=== PATIENT | male | born 1955 | race Caucasian/White ===

== ENCOUNTER → 2018-03-14 | Outpatient (CLI) | payer OTHER ==
[~2018-03-14] MED LIST: ACTOS15 MG PO; ASPIR 8181 MG PO; AUGMENTIN 875875 MG; BACTRIM 400-801 EACH PO; BACTRIM PO; CARAFATE 1 GM TA1 GM PO; FISH OIL SOFTG1 EACH PO; FISHOIL; FLEXERIL PO; FLU VACCINE; GLUCOPHAGE500 MG PO; HYDROCODON-ACE1 EAC5 PO; INSULIN SQ; LANTUS SUBQ; LASIX 20 MG TAB20 MG; LASIX 20 MG TAB20 MG PO; LASIX 40 MG TAB40 M2; LASIX 80 MG TAB80 M1 PO; LEVEMIR SUBQ; LIDODERM 5%1 PATCH TOP; LIPITOR 20 MG T20 M1 PO; LIPITOR20 MG PO; LISINOPRIL20 MG PO; LISINOPRIL30 MG PO; LOPID600 MG; LOPRESSOR25 PO; LORTAB 5 MG/5001 TA1; LOVASTAT40; LOVAZA1000 MG PO; METAMUCIL PAC1 UDPK1; METHADONE HCL5 MG PO; NAPROSYN500 MG PO; NEURONTIN600 MG PO; NORCO 10-325 T1 EACH PO; NOVOLOG100 UNIT/1 SQ; NOVOLOG100 UNIT/1 SUBQ; OMEPRAZOLE40 MG PO; OXYCODONE HCL15 MG PO; OXYCONTIN20 M1 PO; PNEUMOVAX25 MCG/0.5; POTASSIUM PO; PREDNISONE 20 M20 MG PO; PROAIR HFA8.5 GM INH; RELAFEN500 MG; ROZEREM; SIMVASTATIN40 MG PO; TRADJENTA5 MG PO; VICTOZA0.6 MG/0.1 SUBQ; ZANTAC 150MG T150 M1 PO; ZETIA10 MG PO; ZOFRAN ODT4 MG PO
== END ==
LOC: M.WC 12:44
DX: E11.622 Type 2 diabetes mellitus with other skin ulcer (principal); L97.811 Non-pressure chronic ulcer of other part of right lower leg limited to breakdown of skin; E11.621 Type 2 diabetes mellitus with foot ulcer; L97.511 Non-pressure chronic ulcer of other part of right foot limited to breakdown of skin; E11.40 Type 2 diabetes mellitus with diabetic neuropathy, unspecified; I87.2 Venous insufficiency (chronic) (peripheral); I10 Essential (primary) hypertension; E66.01 Morbid (severe) obesity due to excess calories; E78.5 Hyperlipidemia, unspecified; Z68.41 Body mass index [BMI] 40.0-44.9, adult; Z87.891 Personal history of nicotine dependence

== ENCOUNTER → 2018-03-21 | Outpatient (CLI) | payer OTHER | LOC: M.WC 03:00 | DX: E11.622 Type 2 diabetes mellitus with other skin ulcer (principal); L97.811 Non-pressure chronic ulcer of other part of right lower leg limited to breakdown of skin; E11.621 Type 2 diabetes mellitus with foot ulcer; L97.511 Non-pressure chronic ulcer of other part of right foot limited to breakdown of skin; I87.2 Venous insufficiency (chronic) (peripheral); E11.40 Type 2 diabetes mellitus with diabetic neuropathy, unspecified; I10 Essential (primary) hypertension; E78.5 Hyperlipidemia, unspecified; E66.01 Morbid (severe) obesity due to excess calories; Z87.891 Personal history of nicotine dependence; Z68.41 Body mass index [BMI] 40.0-44.9, adult ==

== ENCOUNTER → 2018-03-28 | Outpatient (CLI) | payer OTHER | LOC: M.WC 04:09 | DX: E11.621 Type 2 diabetes mellitus with foot ulcer (principal); L97.511 Non-pressure chronic ulcer of other part of right foot limited to breakdown of skin; E11.622 Type 2 diabetes mellitus with other skin ulcer; L97.811 Non-pressure chronic ulcer of other part of right lower leg limited to breakdown of skin; E11.40 Type 2 diabetes mellitus with diabetic neuropathy, unspecified; L84 Corns and callosities; I10 Essential (primary) hypertension; I87.2 Venous insufficiency (chronic) (peripheral); E78.5 Hyperlipidemia, unspecified; Z87.891 Personal history of nicotine dependence ==

== ENCOUNTER 2018-04-21 02:17 | Inpatient (IN) | payer OTHER ==
[2018-04-21] VITALS (12 sets, daily range): BP systolic 92–155; BP diastolic 34–67
[~2018-04-21] VITALS: Ht 182.9 cm; Wt 139.7 kg
[~2018-04-21 02:17] MED LIST changes: -ASPIR 8181 MG PO; -LIPITOR 20 MG T20 M1 PO; -LISINOPRIL20 MG PO; -LOVAZA1000 MG PO; -PREDNISONE 20 M20 MG PO
[2018-04-21] MEDS ORDERED: LOVAZA1000 MG PO (02:34)
[2018-04-21] MEDS ORDERED: ASPIR 8181 MG PO (02:34)
[2018-04-21] MEDS ORDERED: LIPITOR 20 MG T20 M1 PO (02:35)
[2018-04-21] MEDS ORDERED: LISINOPRIL20 MG PO (02:35)
[2018-04-21 02:46] LABS: HEMATOCRIT 31.2 % (42.0-52.0); MCH 26.7 pg (26.0-34.0); MCHC 32.1 g/dL (28.0-37.0); MPV 7.1 fl. (7.2-11.1); NUCLEATED RBCS 0 /100WBC; PLATELET COUNT* 406 thou/uL (150-400); RBC 3.76 mil/uL (4.50-6.00); RDW-CV 16.5 % (10.5-14.5); WBC 12.6 thou/uL (4.0-11.0)
[2018-04-21 02:49] LABS: ANION GAP 12 mmol/L (7-16); BUN 26 mg/dL (7-18); CALCIUM 9.7 mg/dL (8.5-10.1); CHLORIDE 103 mmol/L (98-107); CO2 25 mmol/L (21-32); CREATININE 1.3 mg/dL (0.6-1.3); GLUCOSE 145 mg/dL (70-99); POTASSIUM 3.7 mmol/L (3.5-5.1); SODIUM 140 mmol/L (136-145)
[2018-04-21 02:51] LABS: APTT 31.4 Seconds (25.0-31.3); INR 1.1; PROTIME 11.7 Seconds (9.20-11.50)
[2018-04-21 03:00] LABS: ALBUMIN 2.8 g/dL (3.4-5.0); ALKALINE PHOSPHATASE 80 U/L (46-116); NT-PRO BRAIN NAT PEPTIDE 721 pg/mL (<300); SGOT 13 U/L (15-37); SGPT 10 U/L (30-65); TOTAL BILIRUBIN 0.3 mg/dL (<0.1-1.0); TOTAL PROTEIN 8.4 g/dL (6.4-8.2); TROPONIN-I LEVEL <0.06 ng/mL (<0.06); URIC ACID* 12.3 mg/dL (2.6-7.2)
[2018-04-21 03:50] LABS: ABSOLUTE BASOPHILS 0.3 thou/uL (0.0-0.2); ABSOLUTE EOSINOPHILS 0.1 thou/uL (0.0-0.7); ABSOLUTE LYMPHOCYTES 0.9 thou/uL (0.8-5.3); ABSOLUTE MONOCYTES 0.4 thou/uL (0.0-1.2)
[2018-04-21 03:52] LABS: CLUMPED PLTS OCCASIONAL; PLATELET ESTIMATE INCREASED
--- NOTE | 2018-04-21 05:15 | NUR ---
ASSUMED CARE OF PT AT 1900. PT IS ALERT AND ORIENTED. VSS. PERRLA. BLOOD SUGAR IS 154. PT REPORTS ONGOING PAIN IN HIS LEFT ELBOW. PT RECIEVED MORPHINE FOR PAIN. PT IS IN SINUS RYTHM ON THE TELEMETRY. PT IS RESTING COMFORTABLY IN BED. RESPIRATIONS ARE EVEN AND NONLABORED. WILL CONTINUE TO MONITOR PT.
--- NOTE | 2018-04-21 09:00 | NUR ---
PATIENT'S PHARMACY CONTACTED TO CLARIFY INSULIN DOSING. PER [facility] IN [place], PATIENT TAKES 90 UNITS OF TRACIBA AT . DR NIETO NOTIFIED. CALLED AND WILL BRING TRACIBA IN IT IS NON-FORUMULARY. BLOOD SUGARS HAVE BEEN ELEVATED, SLIDING SCALE INSULIN INCREASED TO HIGH DOSE PER PROTOCOL. ALSO ON METFORMIN. PATIENT COMPLAINTS OF PAIN TO LEFT ELBOW. ORTHO CONSULTED TO ASPIRATE FLUID.
--- NOTE | 2018-04-21 10:53 | NUR ---
Nutrition: Received consult related to diabetes. New admit this am. Pt dx with accidental insulin overdose due to giving the wrong insulin. BMI 43.5, extreme class 3 obesity. BG 109-306 on carb controlled diet. REC insulin education/reinforcement by nsg. RD can followup 04/24 to determine diet education needs.
--- NOTE | 2018-04-21 15:15 | NUR ---
PRE-MEDICATED WITH MORPHINE FOR ORTHO PROCEDURE. ORTHO DOCTOR IN ROOM TO ASPIRATE LEFT ELBOW.
--- NOTE | 2018-04-21 16:57 | NUR ---
PATIENT TRANSFERED TO 219 ON TELEMETRY FLOOR AT 1645 WITH GAIL MEZA BY BED. ALL QUESTIONS ANSWERED. CLOTHES AND BRACE SENT WITH PATIENT. ARRIVED TO FLOOR RIGHT AFTER PATIENT LEFT UNIT, DIRECTED TO NEW ROOM.
--- NOTE | 2018-04-21 17:07 | NUR ---
pt to room from ICU. appears alert o x 4, denies chest pain, SOB, stattes has been having l elbow pain, reports adeq pain control . sr on monitor
[2018-04-21 17:22] LABS: BF RBC 15520 /mm3; CLARITY TURBID; COLOR YELLOW; TOTAL CELL COUNT 64540 /mm3; TOTAL VOLUME 5 ml
[2018-04-21 17:23] LABS: SOURCE LT. ELBOW
[2018-04-21 17:26] LABS: BF LYMPHOCYTES 1 %; BF MONOCYTES 1 %; BF POLYS 98 %
[2018-04-21 17:27] LABS: BF OTHER CRYSTALS SEEN
--- NOTE | 2018-04-22 05:06 | NUR ---
PT AAOX4, RESP REG AND UNALBORED SKIN W/D NO ACUTE DISTRESS NOTED. PT C/O ELBOW PAIN, PT STTES PAIN NEVER GOES AWAY. PT HAS BEEN MEDICATED SEVERAL TIMES. PT STATES ONLY RELEIVES PARITALLY. PT SATED HE WAS GOING HOME TODAY. TELEMETRY PACK INTACT WITH ALARMS SET. VSS, NO ACUTE CHANGES DURING SHIFT, WILL CONTINUE TO MONITOR. PT IS NOT WANTING TO HELP WITH CARE, HE REFUSES TO HOLD URINAL TO VOID, HE INSISTS SOMEONE HOLD FOR HIM, HAVE ATTEMPTED TO ENCOURAGE PT TO TRY TO HELP HIMSLEF MORE. VSS AND NO ACUTE CHANGES DURING SHIFT WILL CONTINUE TO MONITOR
[2018-04-22 12:00] VITALS: BP 132/73
[2018-04-22] MEDS ORDERED: PREDNISONE 20 M20 MG PO (12:55)
[2018-04-22 14:24] VITALS: BP 132/73
--- NOTE | 2018-04-22 15:35 | NUR ---
ORDER [id number] TO DISHCARGE PATIENT HOME TO SELF CARE. MED REC, MEDICATION EDUCATION, STROKE EDUCATION, AND NEED FOR FOLLOW UOP APPOINTMENTS COVERED AND STATED UNDERSTOOD BY FRITZ. IV AND TELEMETRY PACK REMOVED ND PATINE TTAKEN VIA WHEELCHAIR TO AWAIATING CAR WITH SPOUSE PRESENT. HOURLY ROUNDING COMPETED FOR PATIENT SAFETY AND PATIENT PARTICIPATED IN COLÓN OF CARE.
--- NOTE | 2018-04-23 08:24 | NUR ---
P.T. ORDERS RECEIVED 04/21/18. P.T. EVAL ATTEMPTED BY OTHER P.T. SAME DATE, BUT PT REFUSED. PT WAS DISCHARGED HOME 04/22/18 PRIOR TO COMPLETION OF P.T. EVAL.
--- NOTE | 2018-04-23 10:25 | EKG ---
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 : 1955 Requested By: Jaycob Silvestre Order Number: [id number] MD: Vipul Denis Measurements Intervals [place] Rate: 80 P: 10 [place]: 172 QRS: 214 QRSD: 95 T: 5 QT: 370 QTc: 427 Interpretive Statements Sinus rhythm Abnormal R-wave progression, late transition Inferior infarct, old Compared to ECG 06/21/2012 13:24:57 Sinus tachycardia no longer present Right ventricular hypertrophy no longer present Myocardial infarct finding still present Electronically Signed On 04-23-2018 10:25:45 CDT by Vipul Denis [email or web address] <ELECTRONICALLY SIGNED> By: Vipul Denis MD, [facility] 04/23/18 1025 0 0 Vipul Denis MD, FAC /EPI
[2018-04-23 12:05] LABS: BODY FLUID PROTEIN 3.9 g/dL (())
[2018-04-23 22:55] LABS: SOURCE L ELBOW
== END 2018-04-22 15:35 | disposition home or self-care (01) | DRG 918 ==
LOC: M.ERS 02:17 → M.TBA-ER 03:07 → M.ICU 03:07 → M.2W 16:57
PROVIDERS: Family Medicine; Orthopaedic Surgery; ADMIT Internal Medicine
PROC: 0R9M3ZZ Drainage of Left Elbow Joint, Percutaneous Approach (ICD-10-PCS; principal; 2018-04-21)
DX: T38.3X1A Poisoning by insulin and oral hypoglycemic [antidiabetic] drugs, accidental (unintentional), initial encounter (principal); M10.022 Idiopathic gout, left elbow; E11.9 Type 2 diabetes mellitus without complications; I25.10 Atherosclerotic heart disease of native coronary artery without angina pectoris; Z79.4 Long term (current) use of insulin; Z79.82 Long term (current) use of aspirin; Z79.899 Other long term (current) drug therapy; Z88.8 Allergy status to other drugs, medicaments and biological substances; Y92.89 Other specified places as the place of occurrence of the external cause

== ENCOUNTER → 2018-05-16 | Outpatient (CLI) | payer OTHER ==
[~2018-05-16] MED LIST changes: +ASPIR 8181 MG PO; +LIPITOR 20 MG T20 M1 PO; +LISINOPRIL20 MG PO; +LOVAZA1000 MG PO; +PREDNISONE 20 M20 MG PO
== END ==
LOC: M.WC 04:30
DX: E11.621 Type 2 diabetes mellitus with foot ulcer (principal); L97.511 Non-pressure chronic ulcer of other part of right foot limited to breakdown of skin; E11.622 Type 2 diabetes mellitus with other skin ulcer; L97.821 Non-pressure chronic ulcer of other part of left lower leg limited to breakdown of skin; L84 Corns and callosities; I87.2 Venous insufficiency (chronic) (peripheral); E11.40 Type 2 diabetes mellitus with diabetic neuropathy, unspecified; E78.5 Hyperlipidemia, unspecified; E66.01 Morbid (severe) obesity due to excess calories; I10 Essential (primary) hypertension; K21.9 Gastro-esophageal reflux disease without esophagitis; Z87.891 Personal history of nicotine dependence; Z68.41 Body mass index [BMI] 40.0-44.9, adult

== ENCOUNTER → 2018-05-23 | Outpatient (CLI) | payer OTHER | LOC: M.WC 03:59 | DX: E11.621 Type 2 diabetes mellitus with foot ulcer (principal); L97.511 Non-pressure chronic ulcer of other part of right foot limited to breakdown of skin; E11.622 Type 2 diabetes mellitus with other skin ulcer; L97.821 Non-pressure chronic ulcer of other part of left lower leg limited to breakdown of skin; L84 Corns and callosities; E11.40 Type 2 diabetes mellitus with diabetic neuropathy, unspecified; E66.01 Morbid (severe) obesity due to excess calories; E78.5 Hyperlipidemia, unspecified; I10 Essential (primary) hypertension; I87.2 Venous insufficiency (chronic) (peripheral); K21.9 Gastro-esophageal reflux disease without esophagitis; Z87.891 Personal history of nicotine dependence; Z68.41 Body mass index [BMI] 40.0-44.9, adult ==

== ENCOUNTER → 2018-05-30 | Outpatient (CLI) | payer OTHER | LOC: M.WC 01:56 | DX: E11.621 Type 2 diabetes mellitus with foot ulcer (principal); L97.511 Non-pressure chronic ulcer of other part of right foot limited to breakdown of skin; L97.521 Non-pressure chronic ulcer of other part of left foot limited to breakdown of skin; L84 Corns and callosities; E11.42 Type 2 diabetes mellitus with diabetic polyneuropathy; E78.5 Hyperlipidemia, unspecified; E66.01 Morbid (severe) obesity due to excess calories; I10 Essential (primary) hypertension; I87.2 Venous insufficiency (chronic) (peripheral); K21.9 Gastro-esophageal reflux disease without esophagitis; Z68.41 Body mass index [BMI] 40.0-44.9, adult; Z87.891 Personal history of nicotine dependence ==

== ENCOUNTER → 2019-01-01 | Outpatient (CLI) | payer OTHER | LOC: M.WC 08:00 | DX: R21 Rash and other nonspecific skin eruption (principal); B37.2 Candidiasis of skin and nail; B02.8 Zoster with other complications; E11.9 Type 2 diabetes mellitus without complications; E78.5 Hyperlipidemia, unspecified; G47.30 Sleep apnea, unspecified; I10 Essential (primary) hypertension; K21.9 Gastro-esophageal reflux disease without esophagitis; M10.9 Gout, unspecified; M19.90 Unspecified osteoarthritis, unspecified site; Z87.891 Personal history of nicotine dependence ==

== ENCOUNTER 2019-02-19 23:26 | Inpatient (IN) | payer OTHER ==
[~2019-02-19] VITALS: Ht 182.9 cm; Wt 136.1 kg
[2019-02-19 23:42] LABS: ABSOLUTE BASOPHILS 0.1 thou/uL (0.0-0.2); ABSOLUTE LYMPHOCYTES 1.3 thou/uL (0.8-5.3); ABSOLUTE MONOCYTES 0.8 thou/uL (0.0-1.2); ABSOLUTE NEUTROPHILS 10.8 thou/uL (1.6-8.1); BASOPHILS 0.7 %; EOSINOPHILS 0.2 %; HEMATOCRIT 33.2 % (42.0-52.0); HEMOGLOBIN 10.6 gm/dL (14.0-18.0); LYMPHOCYTES 10.1 %; MCH 27.8 pg (26.0-34.0); MCHC 32.1 g/dL (28.0-37.0); MCV 86.5 fL (80.0-100.0); MONOCYTES 6.1 %; MPV 7.9 fl. (7.2-11.1); NUCLEATED RBCS 0 /100WBC; PLATELET COUNT* 417 thou/uL (150-400); POLYS 82.9 %; RBC 3.83 mil/uL (4.50-6.00); RDW-CV 15.9 % (10.5-14.5)
[2019-02-19 23:47] LABS: ANION GAP 17 mmol/L (7-16); BUN 48 mg/dL (7-18); CALCIUM 9.5 mg/dL (8.5-10.1); CHLORIDE 99 mmol/L (98-107); CO2 27 mmol/L (21-32); CREATININE 2.1 mg/dL (0.6-1.3); GLUCOSE 261 mg/dL (70-99); POTASSIUM 3.7 mmol/L (3.5-5.1); SODIUM 143 mmol/L (136-145)
[2019-02-19] MEDS ORDERED: HUMALOG100 UNIT/1 SUBQ (23:47)
[2019-02-19] MEDS ORDERED: ZANAFLEX4 MG PO (23:48)
[2019-02-19] MEDS ORDERED: TRESIBA FL100 UNIT/1 (23:48)
[2019-02-19 23:50] LABS: INR 1.2; PROTIME 12.5 Seconds (9.20-11.50)
[2019-02-19 23:58] LABS: ALBUMIN 2.9 g/dL (3.4-5.0); ALKALINE PHOSPHATASE 88 U/L (46-116); NT-PRO BRAIN NAT PEPTIDE 459 pg/mL (<300); SGOT 39 U/L (15-37); SGPT 12 U/L (30-65); TOTAL BILIRUBIN 0.4 mg/dL (<0.1-1.0); TOTAL PROTEIN 8.5 g/dL (6.4-8.2); TROPONIN-I LEVEL <0.06 ng/mL (<0.06)
[2019-02-20 01:25] LABS: URINE BILIRUBIN NEGATIVE (Negative); URINE BLOOD TRACE (Negative); URINE CLARITY CLEAR; URINE COLOR YELLOW; URINE GLUCOSE-RANDOM NEGATIVE (Negative); URINE KETONES NEGATIVE (Negative); URINE LEUKOCYTES-REFLEX TRACE (Negative); URINE NITRITE-REFLEX NEGATIVE (Negative); URINE PROTEIN 1+ (Negative); URINE UROBILINOGEN 0.2 E.U./dl (0.2-1.0)
[2019-02-20 01:59] LABS: CASTS None Seen /LPF (None Seen); CRYSTALS None Seen /LPF (None Seen); SQUAMOUS 4-10 Moderate /LPF (0-3); URINE RBC 0-2 Rare /HPF (0-2); URINE WBC-REFLEX 6-15 Few /HPF (0-5)
--- NOTE | 2019-02-20 02:45 | NUR ---
PT ADMITTED TO FLOOR PER CART ACCOMPANIED BY ER STAFF WITH BELONGINGS. ORIENTED TO ROOM AND CALL LITE, HISTORY OBTAINED AND ASSESSMENT PERFORMED, SEE ADMIT NOTES. TRANSFERRED WITH SLIDING DEVICE FROM CART TO BED, PT UNABLE TO TURN SELF DUE TO BACK PAIN AND L WRIST AND L KNEE PAIN WITH MOVEMENT. SCALY RASH TO YESENIA ARMS AND BLE. ABD FOLDS RED, PINK, MOIST, GROIN RED PINK MOIST. FOLDS AND GROIN CLEANSED WITH WOUND CLEANSER AND INTER DRY APPLIED. PT REFUSING TURN TO SIDE, REFUSING ELEVATING LEGS ON PILLOWS. BLE 1+, L WRIST EDEMA. RAC IVF AND ABX INFUSING, PLACED ON PUMP. REQUESTING SNACK AND TV REMOTE. WILL CONTINUE TO MONITOR AND PROVIDE CARES NEEDED. VOIDING PER URINAL. O2 2L 100%.
[2019-02-20 03:00] VITALS: BP 154/64; BP 158/56
--- NOTE | 2019-02-20 06:02 | NUR ---
NEW ADMIT THIS SHIFT. HAS SLEPT ON AND OFF SINCE SETTLING IN AFTER ADMIT INFORMATION AND PICTURES. WOUND CARE TO SEE PT TODAY. REFUSING TURNS SIDE TO SIDE, STATING IT HURTS TOO MUCH. USING URINAL WITH ASSISTANCE, BED CHANGE NEEDED AFTER URINAL MALFUNCTION-PAINFUL FOR PT TO BE TURNED, IV PAIN MED GIVEN WITH FAIR FELIEF. ABLE TO USE CALL LITE AND MAKE NEEDS KNOWN. O2 2L.
[2019-02-20 08:00] VITALS: BP 104/47
--- NOTE | 2019-02-20 10:18 | NUR ---
Nutrition: Pt admitted with ARF. H/o IDDM, CAD, gout. BG 200s, alb 2.9, BUN 48, cr 2.1. Eating 100% of CHO cotnrolled diet. Wt: 300#. RD ordered Odell bid for wound healing. Was consulted for wound. GOALS: tight BG control, Odell BID, continue good meal intake. Mild risk.
--- NOTE | 2019-02-20 12:23 | EKG ---
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: [place] : 1955 Requested By: Reanna Lee Order Number: [id number] MD: Vipul Denis Measurements Intervals [place] Rate: 106 P: 72 FL: 152 QRS: 216 QRSD: 87 T: -1 QT: 336 QTc: 447 Interpretive Statements Sinus tachycardia Possible right ventricular hypertrophy Inferior infarct, old Compared to ECG 04/21/2018 03:11:22 Sinus rate has increased Myocardial infarct finding still present Electronically Signed On 02-20-2019 12:23:24 CDT by Vipul Denis [email or web address] <ELECTRONICALLY SIGNED> By: Vipul Denis MD, [facility] 02/20/19 1223 2348 2348 Vipul Denis MD, [facility] /EPI
--- NOTE | 2019-02-20 14:14 | NUR ---
INITIAL ASSESSMENT: Pt evaluated for d/c planning needs. Reviewed chart and spoke with nurse and pt. Pt lives in house with spouse and 37 year old son. Spouse works during the day. Pt said he was independent with ADL's prior to admission to the hospital and was able to toilet and dress himself. He said he was fine until hand became swollen. Pt said he does not know what happened to his hand. Pt admits that is back is hurting and he is not able to turn in the bed. Pt said he uses a walker at home. Awaiting input from PT re: recommendation for d/c. Discussed possibly going to SNF/rehab on d/c from hospital. Will remain available to assist as needed.
--- NOTE | 2019-02-20 17:39 | NUR ---
WOUND NURSE- PATIENT ADMITTED ON 02/20/19 WITH CONSTANTIN, LEUKOCYTOSIS, S/P FALL, IDDM, ESSENTIAL HTN, CHRONIC PAIN, CAD & HYPERLIPIDEMIA. PATIENT HAS AN EXTENSIVE RASH ON BOTH ARMS, BOTH LOWER LEGS, PANNUS AND GROIN. PATIENT REPORTS THAT THE RASH JUST DEVELOPED WITHIN THE LAST FEW DAYS, ALTHOUGH IT APPEARS VERY CHRONIC WITH DRY FLAKY SKIN, PATCHY ERYTHEMA AND SATELLITE LESIONS. HE HAS NO SENSATION IN HIS LOWER EXTREMITIES DUE TO PERIPHERAL NEUROPATHY, BUT DOES REPORT SOME DISCOMFORT IN OTHER AFFECTED AREAS, PARTICULARLY HIS LEFT HAND. ALL AFFECTED AREAS SOAKED WELL WITH PHYTOPLEX BODY LOTION AND SOAPY WASH CLOTHS, RINSED WELL, PATTED DRY AND APPLIED ANTIFUNGAL OINTMENT. OVERALL APPEARANCE AND ODOR IMPROVED. INTERDRY AG PLACED UNDER PANNUS AND IN GROIN FOLDS. TAKEN OFF OF BEDPAN UPON ENTERING ROOM, AND BUTTOCKS AREA WITH CHRONIC APPEARING PINK DISCOLORATION, BUT NOT THE SAME RASH. NO PRESSURE RELATED SKIN BREAKDOWN. TEMP 37.8, WBC 13, H&H 10.6/33.2. BLOOD & URINE CULTURES PENDING. RECOMMENDATIONS: -SKIN CARE ORDERED -ASSIST WITH REPOSITIONING EVERY 2 HOURS
--- NOTE | 2019-02-20 17:59 | NUR ---
PATIENT RESTING IN BED. PATIENT HAS COMPLAINTS OF GENERAL PAIN TO EXTREMITIES AND BACK, TREATED PARTIALLY WITH MEDICATION. PATIENT HAS REFUSED ACTIVITY AND TURNS. PATIENT SEEN BY WOUND CARE THIS EVENING. PATIENT HAS GOOD APPETITE. PATIENT DENIES ANY NEEDS AT THIS TIME. CALL LIGHT WITHIN REACH. WILL CONTINUE TO MONITOR.
[2019-02-20 20:30] VITALS: BP 150/60
[2019-02-21 03:59] LABS: HEMATOCRIT 27.3 % (42.0-52.0); HEMOGLOBIN 8.8 gm/dL (14.0-18.0); MCH 27.8 pg (26.0-34.0); MCHC 32.4 g/dL (28.0-37.0); MCV 85.9 fL (80.0-100.0); MPV 7.7 fl. (7.2-11.1); RBC 3.18 mil/uL (4.50-6.00); RDW-CV 15.8 % (10.5-14.5); WBC 11.1 thou/uL (4.0-11.0)
[2019-02-21 04:25] LABS: ALBUMIN 2.1 g/dL (3.4-5.0); CREATININE 1.1 mg/dL (0.6-1.3); POTASSIUM 3.5 mmol/L (3.5-5.1); TOTAL BILIRUBIN 0.4 mg/dL (<0.1-1.0); TOTAL PROTEIN 6.8 g/dL (6.4-8.2)
--- NOTE | 2019-02-21 05:13 | NUR ---
PT AWAKE MUCH OF THE NIGHT, FREQUENT CO PAIN. PAIN MEDS GIVEN ORDERED, PLASTIC FABRICATOR DR DOMINIQUE AND ONE TIME METHADONE TAB ORDERED. PT STATES NONE OF THE MEDS ARE RELIEVING 9-10/10 BACK AND L KNEE PAIN WELL GENERALIZED PAIN. USING URINAL TO VOID WITH ASSIST, BED CHANGE NEEDED FOR INCONTINENT EPISODE. SMALL INCONTINENT BOWEL MOVEMENT. MOVING PT IN BED CAUSES INCREASED PAIN CAUSING PT TO YELL OUT. REASSURANCE GIVEN, PT POSITIONED IN BED FOR COMFORT. ALLOWED US TO PUT A PILLOW UNDER L HIP ONE TIME AN ATTEMPT TO TURN PT. EDUCATION GIVEN ABOUT PRESSURE ULCERS AND NEED FOR REPOSITIONING- PT STATES "IT HURTS TOO BAD." AM LABS DRAWN. HERE AT HS AND WOULD LIKE ROUNDING TO CALL HER TOMORROW WITH UPDATE ON PLAN OF CARE. RAC IVF INFUSING PER PUMP. ABLE TO USE CALL LITE AND MAKE NEEDS KNOWN.
[2019-02-21 08:00] VITALS: BP 147/63
[2019-02-21 09:19] LABS: % SATURATION 7 % (20-39); IRON 17 ug/dL (50-175)
[2019-02-21 15:33] VITALS: BP 142/93
--- NOTE | 2019-02-21 17:11 | NUR ---
PATIENT RESTING IN BED. FRANCO THAS CONTINUED PAIN BUT STATES IT IS BETTER CONTROLLED WITH THE DILAUDID. PATIENT WORKED WITH PHYSICAL THERAPY THIS AFTERNOON BUT WAS STILL UNABLE TO EVEN SIT EDGE OF BED. PATIENT HAS GOOD APPETITE. PATIENT DENIES ANY NEEDS AT THIS TIME. CALL LIGHT WITHIN REACH. WILL CONTINUE TO MONITOR.
[2019-02-21 20:45] VITALS: BP 141/71
[2019-02-22 04:04] LABS: HEMATOCRIT 27.2 % (42.0-52.0); HEMOGLOBIN 8.8 gm/dL (14.0-18.0); MCH 27.8 pg (26.0-34.0); MCHC 32.5 g/dL (28.0-37.0); MCV 85.7 fL (80.0-100.0); MPV 7.9 fl. (7.2-11.1); RBC 3.17 mil/uL (4.50-6.00); RDW-CV 15.8 % (10.5-14.5); WBC 10.6 thou/uL (4.0-11.0)
[2019-02-22 04:14] LABS: CALCIUM 9.5 mg/dL (8.5-10.1); POTASSIUM 3.5 mmol/L (3.5-5.1)
--- NOTE | 2019-02-22 05:25 | NUR ---
PT AWAKE MUCH OF THE SHIFT, NAPPED FOR SHORT TIME AFTER IV PAIN MED GIVEN. PO PAIN MEDS DO NOT PROVIDE ANY RELIEF HE STATES, IV MED PROVIDES SOME RELIEF FOR SHORT TIME. RAC SL. O2 2L NC. HS ACCUCHECK 213, INSULIN GIVEN BUT SNACK REFUSED. AM LABS DRAWN. ICE PACKS GIVEN PER PT REQUEST FOR L WRIST AND L KNEE. INCONTINENT STOOLS OVERNIGHT, ERROL CARE GIVEN AND BARRIER CREAM APPLIED. BUTTOCK RED-EDUCATION GIVEN ONCE AGAIN TO PT ON NEED FOR REPOSITIONING TO PREVENT BED SORES. PT ALLOWED PILLOW TO BE PLACED UNDER HIP ONE TIME, ONLY ALLOWED BOOSTING IN BED AND HOB AND KNEES RAISED AND LOWERED REPOSITIONING. PT STATES IT HURTS TOO MUCH TO TURN ONTO SIDE-GROANS AND YELLS OUT AT TIMES WITH TURNING FOR INCONTINENT CARE. ABLE TO USE CALL LITE AND MAKE NEEDS KNOWN.
[2019-02-22 08:05] VITALS: BP 147/64
--- NOTE | 2019-02-22 13:07 | NUR ---
cm faxed snf referral to [facility], as asked to d/t liason being out of office. received text stating, the liason can come ot on Monday for an onsite visit. And, they will not hav enay weekend admission this weekend. fax - [phone].
[2019-02-22 16:00] VITALS: BP 118/52
--- NOTE | 2019-02-22 17:04 | NUR ---
PATIENT RESTING IN BED. PATIENT HAS CONTINUED COMPLAINTS OF PAIN, TREATED ADEQUATELY WITH MEDICATION. PATIENT WORKED WITH OCCUPATIONAL THERAPY THIS AFTERNOON. PATIENT EDUCATED ON NEED FOR TURNING WHILE IN BED AND PATIENT WAS AGREEABLE THIS AFTERNOON TO TURN, WHEREAS HE HAD REFUSED ALL TURNS PRIOR TO THAT. PATIENT HAS GOOD APPETITE. PATIENT DENIES ANY NEEDS AT THIS TIME. CALL LIGHT WITHIN REACH. WILL CONTINUE TO MONITOR.
[2019-02-22 21:00] VITALS: BP 124/49
--- NOTE | 2019-02-23 05:53 | NUR ---
PT AWAKE MOST OF SHIFT. ASSESSMENT DOCUMENTED. MEDS GIVEN PER E-OCT. IV PATENT. PAIN MEDS GIVEN PER E-MAR. PT EDUCATED ON REPOSITIONS, PT DID REPOSITION A COUPLE TIMES THIS SHIFT CHARTED. PT REFUSED TO ELEVATE HEELS ON PILLOWS. INTERDRY IN PLACE. THIS MORNING PT STATED THAT HE NO LONGER WANTS ANY PAIN MEDICATIONS OR "HARD MEDICINE" STATING THAT HE NO LONGER WANTS TO JUST LAY AROUND. PT STATES THAT HE WANTS TO STOP "COLD TURKEY". PT EDUCATED ON STOPPING NARCOTICS THAT FAST, HE STATED THAT HE UNDERSTOOD AND THAT HE HAS HELPED PEOPLE QUIT SO HE KNOWS WHAT TO EXPECT AND THAT THERE WOULD BE NO "WEANING OFF" OF THE MEDICINE. PT DID HAVE SEVERAL BOWEL MOVEMENTS THIS SHIFT. PT VOIDED PER URINAL WITH ASSISSTANCE. WILL CONTINUE WITH PLAN OF CARE.
[2019-02-23 07:47] VITALS: BP 125/64
--- NOTE | 2019-02-23 18:31 | NUR ---
ASSUMED CARE OF PATIENT AT 1540 AND RECEIVED REPORT FROM SUMA REYNOLDS. ALERT AND ORIENTED X4. REVIEWED ASSESSMENTS. PATIENT COMPLAINTS FO PAIN MANAGED WITH ORAL MEDICATION. PATIENT HAD SMALL BOWEL MOVEMENT TODAY AND A BED CHANGE. TURNS COMPLETED. NO OTHER COMPLAINTS FROM THE PATIENT. FALL PRECAUTIONSIN PLACE. CALL LIGHT WITHIN REACH. HOURLY ROUNDS COMLETED SINCE ASSUMED CARE. WILL CONTINUE TO MONITOR.
[2019-02-23 20:15] VITALS: BP 135/56
[2019-02-24 02:40] VITALS: BP 107/71
--- NOTE | 2019-02-24 03:47 | NUR ---
0240 PATIENT STATED ON HOURLY ROUND CHECK THAT HE WAS HAVING CHEST PAIN. LEFT CHEST. NO RADIATION. VERY VAGUE REGARDING SEVERITY STATING IT IS JUST ANNOYING AND THOUGHT IT MIGHT BE HIS STOMACH OR THE WAY HE WAS LYING IN THE BED. BLOOD SUGAR 101. THIS WAS LOWER THAN USUAL FOR HIM. JUICE PROVIDED. BP 107/71, AP 59 BPM, DENIES SHORTNESS OF AIR. O2 SAT ON ROOM AIR 97%. APPLIED O2 AT 2L/MIN PER PROTOCOL. EKG BY CROSS ENTERPRISE INTEGRATOR. AFTER ALL ABOVE COMPLETED CALL OUT TO PHYSICIAN REGARDING EVENT AND REQUEST FOR FURTHER ORDERS. PATIENT UPDATED ON PLAN OF CARE. AT 0350 STATES PAIN STILL PRESENT LEFT CHEST. NOT ACUTE. APPEARS IN NO DISTRESS. AWAITING PHYSICIAN CALL BACK. CONTINUE TO MONITOR.
--- NOTE | 2019-02-24 03:59 | NUR ---
PATIENT CALLED FROM ROOM. STATES HE PUSHED ON HIS CHEST WHERE IT WAS HURTING AND IT WAS SORE. HE THINKS IT IS A SORE MUSCLE. PATIENT HAS DECIDED NOT TO USE IV PAIN MEDICATION, ORAL MEDS AVAILABLE AT 0430. WILL PROVIDED.
[2019-02-24 04:43] LABS: HEMATOCRIT 27.5 % (42.0-52.0); MCH 27.3 pg (26.0-34.0); MCHC 32.7 g/dL (28.0-37.0); MCV 83.6 fL (80.0-100.0); MPV 7.8 fl. (7.2-11.1); RBC 3.29 mil/uL (4.50-6.00); RDW-CV 15.7 % (10.5-14.5); WBC 10.1 thou/uL (4.0-11.0)
[2019-02-24 04:44] LABS: CALCIUM 9.2 mg/dL (8.5-10.1); CREATININE 1.1 mg/dL (0.6-1.3); MAGNESIUM 1.8 mg/dL (1.8-2.4); POTASSIUM 3.1 mmol/L (3.5-5.1)
--- NOTE | 2019-02-24 05:00 | NUR ---
PATIENT STATES HE WILL NOTIFY HIS OF ROOM CHANGE.
--- NOTE | 2019-02-24 05:18 | NUR ---
NEW ORDERS FOR TELE TRANSFER, LAB, CARDIOLOGY CONSULT AND HOLD AM DOSE OF METHADONE. PATIENT UPDATED ON PLAN OF CARE. REPORT GIVEN TO LIU REYNOLDS BY PHONE. SBAR FAXED PRIOR. PRIOR TO ONSET OF CHEST PAIN PATIENT WAS PROVIDED WITH ORAL PAIN MEDS ONLY FOR CHRONIC BACK PAIN. PATIENT DID PRESENT WITH LOWER EXTREMITY TREMORS INTERMITTANTLY. IMPROVEMENT IN PATIENT ASSISTING WITH REPOSITIONING IN THE BED. CALLED FOR BEBPAN EARLY EVENING WITH LARGE RESULTS. HAS ALSO BEEN CONTINENT OF URINE WITH ASSIST BY NURSE WITH URINAL. VITAL SIGNS AND BLOOD GLUCOSE STABLE. TO ROOM 204 BY BED WITH ALL BELONGINGS AT 0520 IN STABLE CONDITION.
[2019-02-24 05:30] VITALS: BP 110/68
--- NOTE | 2019-02-24 07:42 | NUR ---
PT RECIEVED FROM ED. ALERT AND ORIENTED X4. CALL LIGHT WITHIN REACH AND BED IN LOW POSITION. PT C/O PAIN, REFUSES TO TAKE MEDICATION. SAT MAINTAINED IN O2. HOURLY ROUNDING DONE FOR PT SAFETY.
[2019-02-24 08:00] VITALS: BP 149/76
--- NOTE | 2019-02-24 09:24 | NUR ---
PT REFUSES REPEAT TROPONIN. STATES HE WANTS TO GO BACK TO MED SURG UNIT. REQUESTING PAIN MEDS BUT DOES NOT WANT IV PAIN MEDS OR METHADONE. DR DANIEL PAGED
[2019-02-24 11:30] VITALS: BP 176/64
[2019-02-24 16:00] VITALS: BP 149/83
--- NOTE | 2019-02-24 16:21 | NUR ---
PT RESTING IN BED THROUGHOUT SHIFT. PT USES BEDPAN FOR BM. REFUSES TO GET UP TO BSC OR CHAIR. OFFERED VINCE TO ASSIST PT IN GETTING UP TO CHAIR. PT CONTINUES TO REFUSE. INSTRUCTED PT ON IMPORTANCE OF TURNING. PT REFUSES WEDGES AND WILL REMOVE PILLOWS WHEN PLACED BEHIND HIM TO KEEP HIM ON THE SIDE. PT INSTRUCTED ON WOUND CARE. PT GIVEN PAIN MEDS ORDERED. TOLERATING PO WELL. NSR ON MONITOR. AT BS AND UPDATED ON PLAN OF CARE
[2019-02-24 20:00] VITALS: BP 169/85
[2019-02-25] VITALS: BP 134/63
[2019-02-25 04:00] VITALS: BP 164/68
[2019-02-25 05:25] LABS: ALBUMIN 2.1 g/dL (3.4-5.0); CALCIUM 9.3 mg/dL (8.5-10.1); PHOSPHORUS* 3.5 mg/dL (2.5-4.9)
[2019-02-25 07:09] VITALS: BP 149/74
--- NOTE | 2019-02-25 07:45 | NUR ---
PT CARE ASSUMED AT 1930. SAT MAINTAINED IN RA. ALERT AND ORIENTED X 4. CALL LIGHT WITHIN REACH AND BED IN LOW POSITION. PT HAD A RUN OF VTACH, PHYSICIAN INFORMED, NO ORDERS RECIEVED. C/O PAIN, MEDICATION GIVEN PER EMAR. HOURLY ROUNDING DONE FOR PT SAFETY.
--- NOTE | 2019-02-25 07:56 | CON ---
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 The patient has an extensive past medical history. He has a long history of back pain following back surgery. He has been to the pain clinic on multiple occasions. He is not very active at this time and uses a walker. He has had multiple epidurals in the past. He also has a history of venous stasis. He has been to the [facility] in the past. He has chronic edema of his feet. He was last admitted here to [place] in April with elevated blood sugar. The patient recently noticed a rash on his hands. He noticed his left hand was swollen and weak. He called the ambulance and was brought here to [place] 4 days ago. After admission, he complained of left-sided chest pain. There is no radiation of the pain. It is not related to activity or meals. There is no trauma or rash on his chest. Cardiology consultation requested. He denies any shortness of breath, palpitation, or syncope. PAST MEDICAL/SURGICAL HISTORY: He has had cholecystectomy and back surgery. He has a history of diabetes. He apparently had a heart catheterization in the past and no significant coronary artery disease. He has sleep apnea, but does not use CPAP. MEDICATIONS: Include Zetia, Neurontin, methadone, hydrocodone, aspirin, Lipitor, lisinopril, metformin, metoprolol, insulin, and Zanaflex. ALLERGIES: HE HAS INTOLERANCE TO CRESTOR. FAMILY HISTORY: His father had heart disease. SOCIAL HISTORY: He is . He and his live in [place]. 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 No smoking or alcohol abuse. REVIEW OF SYSTEMS: He has had no history of stroke, peptic ulcer disease, liver disease, kidney disease, cancer, psychiatric illness, or chronic skin condition. PHYSICAL EXAMINATION: GENERAL: Revealed a large middle-aged male. He is 6 feet tall [place] [address] [place] [address] CONSULTATION Name: HEATHER HORTON Room: [address] IN [facility].#: [id number] Admission: 02/20/19 Attend Phys: Jc Larsen MD Discharge: Date of : 51 Report #: [id number] VITAL SIGNS: He had a blood pressure of 110/70, pulse 60, and he is afebrile. HEENT: He is anicteric. Conjunctivae are pink. Mucous members are moist. NECK: Veins were difficult to assess due to obesity. CHEST: Clear to auscultation. CARDIOVASCULAR: Regular rate and rhythm, without murmur or rub. ABDOMEN: Obese. EXTREMITIES: Had no pedal edema. SKIN: Cool and desquamating. NEUROLOGIC: Nonfocal. RADIOLOGIC DATA: His ECG this morning shows a sinus rhythm, evidence of previous inferior infarction, but no ST or T-wave change noted. His workup so far, he had a portable chest x-ray which showed cardiomegaly, otherwise clear lung doherty. LABORATORY DATA: His sodium 140, potassium 3.1, creatinine 1.1, and glucose 178. Liver function studies were normal. Troponin today 0.06. BNP 459. White blood cell count is 10.1 and hemoglobin 9. His iron saturation was ____ and ferritin 201. IMPRESSION AND RECOMMENDATIONS: 1. Back pain. No evidence of heart disease. Recommend no further cardiac evaluation. 2. Hypertension. The patient is on a beta jordana and CALLIE inhibitor. 3. Hyperlipidemia. The patient is on a statin drug. 4. Diabetes. 5. Obesity. 6. Sleep apnea. The patient does not use continuous positive airway pressure. 7. Venous stasis. 8. Chronic back pain. The patient is on methadone. <ELECTRONICALLY SIGNED> By: Demetris Coto MD, [facility] 02/25/19 0756 0812 [id number] Coto MD, FAC /nt
--- NOTE | 2019-02-25 10:24 | NUR ---
Spoke with michelle Tyler dc to skilled tomorrow. Updated Milagros at [facility], she is to come and complete an onsite today. Following.
[2019-02-25 11:24] VITALS: BP 142/71
--- NOTE | 2019-02-25 14:18 | EKG ---
[place] [address] ELECTROCARDIOGRAM REPORT Name: HEATHER HORTON Room: [address] ADM IN M.R.#: [id number] Admission: 02/20/19 Attend Phys: Jc Larsen MD Discharge: Date of : 51 Report #: [id number] THIS REPORT FOR: //name// [facility] ED Test Date: 2019-02-24 Test Time: 03:19:36 Pat Name: HEATHER HORTON Department: Room: [address] Gender: M Materials Associate: : 1955 Requested By: Reanna Lee Order Number: [id number] Reading MD: Demetris Coto Measurements Intervals [place] Rate: 59 P: 20 [place]: 172 QRS: 258 QRSD: 104 T: 3 QT: 512 QTc: 508 Interpretive Statements Sinus rhythm Inferior infarct, old Prolonged QT interval Compared to ECG 02/19/2019 23:48:07 Prolonged QT interval now present Sinus tachycardia no longer present Myocardial infarct finding still present Electronically Signed On 02-25-2019 14:18:43 CDT by Demetris Coto [email or web address] <ELECTRONICALLY SIGNED> By: Demetris Coto MD, [facility] 02/25/19 1418 0319 0319 Demetris Coto MD, [facility] /EPI
--- NOTE | 2019-02-25 15:42 | NUR ---
ASSESSMENT COMPLETE. PT ALERT AND ORIENTED X4. PT GIVEN PRN PAIN MEDICATION NEEDED. PT NSR ON TELE MONITOR THROUGHOUT THE DAY. PT DENIES N/V, TOLERATING MEALS. ACCUCHECK ACHS. PT CALLS OUT APPROPRIATELY FOR URINAL. PT UP WITH 2 ASSIST WITH WALKER TO CHAIR. PT IS ON ROOM AIR, VSS. INTRADRY TO ABD FOLDS. LOTIONS APPLIED TO DRY ITCHY SKIN ON FEET AND HANDS. Q2 TURN. SPOUSE AT BEDSIDE MOST OF THE DAY. SEE ASSESSMENT AND VITALS FOR OTHER DETAILS. CALL LIGHT WITHIN REACH, WILL CONTINUE PLAN OF CARE
[2019-02-25 15:51] VITALS: BP 121/75; BP 168/92
[2019-02-26] VITALS: BP 145/61
[2019-02-26 04:00] VITALS: BP 158/72
[2019-02-26 04:50] LABS: CALCIUM 9.6 mg/dL (8.5-10.1); CREATININE 0.9 mg/dL (0.6-1.3); MAGNESIUM 1.9 mg/dL (1.8-2.4); POTASSIUM 3.7 mmol/L (3.5-5.1)
--- NOTE | 2019-02-26 07:26 | NUR ---
PT ALERT AND ORIENTED. VSS ON RA. ASSESSMENT DOCUMENTED. MEDS GIVEN PER EMAR. PAIN MEDS GIVEN MULTIPLE TIMES THIS SHIFT. PAIN DOES <7 WITH MEDS. Q2 TURN. PT REFUSED TURNS. EDUCATINO GIVEN. PT TO URINALS FOR VOIDING. HOURLY ROUNDINGS MADE. CALL LIGHT WITHIN REACH. WILL CONTINUE TO MONITOR.
[2019-02-26 07:30] VITALS: BP 167/60
[2019-02-26] MEDS ORDERED: MS CONTIN 30 MG30 MG PO (09:44)
[2019-02-26] MEDS ORDERED: OXYCODONE HCL15 MG PO (09:46)
[2019-02-26] MEDS ORDERED: PREDNISONE 10 M10 MG PO (10:27)
[2019-02-26] MEDS ORDERED: MIRALAX17 GM PO (10:27)
[2019-02-26] MEDS ORDERED: SENNA8.6 MG PO (10:27)
[2019-02-26 11:00] LABS: URINE BILIRUBIN NEGATIVE (Negative); URINE BLOOD NEGATIVE (Negative); URINE CLARITY CLEAR; URINE COLOR YELLOW; URINE GLUCOSE-RANDOM NEGATIVE (Negative); URINE KETONES 1+ (Negative); URINE LEUKOCYTES-REFLEX NEGATIVE (Negative); URINE NITRITE-REFLEX NEGATIVE (Negative); URINE PROTEIN TRACE (Negative); URINE SPECIFIC GRAVITY 1.015 (1.005-1.030); URINE UROBILINOGEN 0.2 E.U./dl (0.2-1.0)
--- NOTE | 2019-02-26 11:54 | NUR ---
Pt is ready to dc to skilled today, awaiting insurance auth, updated Milagros at [facility].
--- NOTE | 2019-02-26 13:23 | EKG ---
[place] [address] ELECTROCARDIOGRAM REPORT Name: [facility] Room: [address] ADM IN M.R.#: [id number] Admission: 02/20/19 Attend Phys: Jc Larsen MD Discharge: Date of : 51 Report #: [id number] THIS REPORT FOR: //name// [facility] Test Date: 2019-02-26 Test Time: 11:07:10 Pat Name: HEATHER HORTON Department: Room: [address] Gender: M Jammer Operator: : 1955 Requested By: Lucas Sheppard Order Number: [id number] Vahe MD: George Nogueira Measurements Intervals [place] Rate: 67 P: 54 TN: 181 QRS: 257 QRSD: 100 T: -1 QT: 499 QTc: 527 Interpretive Statements Sinus rhythm Abnormal R-wave progression, late transition Inferior infarct, old Prolonged QT interval Compared to ECG 02/24/2019 03:19:36 No significant changes Electronically Signed On 02-26-2019 13:22:59 CDT by George Nogueira [email or web address] <ELECTRONICALLY SIGNED> By: George Nogueira MD, [facility] 02/26/19 1322 1107 1107 George Nogueira MD, [facility] /EPI
[2019-02-26 21:16] VITALS: BP 152/72
--- NOTE | 2019-02-26 21:45 | NUR ---
PT TRANSFERRED TO FLOOR PER BED WITH BELONGINGS AND CHART. ASSESSMENT COMPLETED, SEE NOTES. PT DENIES PAIN OR PROBLEMS AT THIS TIME. WILL CONTINUE TO MONITOR AND PROVIDE CARES NEEDED. CALL LITE IN EASY REACH.
--- NOTE | 2019-02-27 05:29 | NUR ---
PT AWAKE MOST OF THE NIGHT. LFA SL, IV ABX GIVEN ORDERED. RECEIVED SCHEDULED PO PAIN MED AND PRN PO PAIN MED. USING URINAL WITH STAFF ASSISTANCE, INCONTINENT AT TIMES. ROOM AIR. POSSIBLE DC TO SNF TODAY. REFUSING TURNS, EDUCATION GIVEN, ERROL CARE GIVEN WITH INCONTINENT EPISODES. NO LABS THIS MORNING.
--- NOTE | 2019-02-27 11:05 | NUR ---
INCENDIARY POWDER MIXER INFORMED BY GUZMAN WITH [facility] ADMISSIONS THAT THE FACILITY HAD RECEIVED INSURANCE AUTH, AND TRANSPORTATION IS ARRANGED FOR 1300. D/C GRADES 1 THROUGH 5 TEACHER SPOKE TO THE PATIENT AND SPOUSE TO INFORM OF THIS AND BOTH ARE IN AGREEMENT. D/C GRADES 1 THROUGH 5 TEACHER INFORMED THE RN IN-CHARGE OF THE PATIENT OF THE FACILITIES ACCEPTANCE, PATIENT'S TIME OF TRANSPORT, AND WHERE TO CALL REPORT. RN IN AGREEMENT. CM WILL REMAIN AVAILABLE TO ASSIST AND FOLLOW NEEDED. [facility] PHONE: [phone]
[2019-02-27 11:16] VITALS: BP 146/71
== END 2019-02-27 13:12 | DRG 564 ==
LOC: M.ERS 23:26 → M.2W 02-20 00:39 → M.TBA-ER 02-20 00:39 → M.ORTHSURG 02-20 00:39 → M.2W 02-24 05:32 → M.ORTHSURG 02-26 21:47
PROVIDERS: Emergency Medicine; Internal Medicine; ADMIT Internal Medicine
DX: T79.6XXA Traumatic ischemia of muscle, initial encounter (principal); R65.11 Systemic inflammatory response syndrome (SIRS) of non-infectious origin with acute organ dysfunction; N17.0 Acute kidney failure with tubular necrosis; N39.0 Urinary tract infection, site not specified; Z68.41 Body mass index [BMI] 40.0-44.9, adult; E11.9 Type 2 diabetes mellitus without complications; E78.5 Hyperlipidemia, unspecified; I10 Essential (primary) hypertension; E66.9 Obesity, unspecified; G47.30 Sleep apnea, unspecified; I87.8 Other specified disorders of veins; G89.29 Other chronic pain; M54.9 Dorsalgia, unspecified; I25.10 Atherosclerotic heart disease of native coronary artery without angina pectoris; D64.9 Anemia, unspecified; K59.03 Drug induced constipation; T40.605A Adverse effect of unspecified narcotics, initial encounter; M17.12 Unilateral primary osteoarthritis, left knee; I45.81 Long QT syndrome; W07.XXXA Fall from chair, initial encounter; B96.1 Klebsiella pneumoniae [K. pneumoniae] as the cause of diseases classified elsewhere; E87.6 Hypokalemia; Z79.4 Long term (current) use of insulin; Z79.899 Other long term (current) drug therapy; Z79.1 Long term (current) use of non-steroidal anti-inflammatories (NSAID); Z79.84 Long term (current) use of oral hypoglycemic drugs; Z88.8 Allergy status to other drugs, medicaments and biological substances; Z90.49 Acquired absence of other specified parts of digestive tract; Z82.49 Family history of ischemic heart disease and other diseases of the circulatory system; Y92.89 Other specified places as the place of occurrence of the external cause

== ENCOUNTER 2019-03-12 14:51 | Inpatient (IN) | payer OTHER ==
[~2019-03-12] VITALS: Ht 182.9 cm; Wt 115.7 kg
--- NOTE | ~2019-03-12 | CON ---
[address] [address] CONSULTATION Name: HEATHER HORTON Room: [address] IN M.R.#: [id number] Admission: 03/12/19 Attend Phys: Jovanni Wang Discharge: Date of : 51 Report #: [id number] THIS REPORT FOR: //name// CC: Ulisses Ferguson DO Lazaro Foote DICTATED BY: Nani Sanchez [facility] DATE OF SERVICE: 03/14/2019 Please note at the time of this dictation, the patient was seen and physically examined by myself. REASON FOR CONSULTATION: Rectal pain and hemorrhoidal issues. HISTORY OF PRESENT ILLNESS: This is a 63-year-old man who presented to the Emergency Room after he had been discharged from a rehab facility after he had had increased weakness and a fall from a hospitalization that he went to recover. Once he has been home for the past week, he was unable to get out of his recliner, had been there for several days due to weakness and inability to get there. The patient states that he has not been able to have a bowel movement and get up and go, so therefore he has been constipated. He says he has a pain in his "butt and wrist." He denied any nausea, vomiting, diarrhea, chest pain, shortness of breath or any fever or chills at this time. He was also noted upon arrival to the Emergency Room that he had a urinary tract infection as well. The patient states he had a colonoscopy done last year and was told he had internal hemorrhoids. He states normally than when he goes to bathroom, sometimes he will have to push them back in, but given that he has not had a bowel movement in several days, he was very uncomfortable. Apparently in talking to the nurse, the patient has had 4 very large bowel movements since he has been here and they did not notice any external hemorrhoids at that time. ALLERGIES: CRESTOR, BYETTA. MEDICATIONS: From home, MiraLax, senna, Tresiba, Neurontin, aspirin, Zestril, Humalog, Lopressor, MS Contin IR, OxyIR, metformin, Zetia, Lipitor, Zanaflex. PAST MEDICAL HISTORY: Insulin-dependent diabetic. He has got dermatitis of his lower extremities. History of heart disease, hypertension, morbid obesity, hypercholesterolemia. PAST SURGICAL HISTORY: Heart catheterization, ____, arthroscopic surgery, knee abscesses and cholecystectomy. FAMILY HISTORY: [place] [address] CONSULTATION Name: HEATHER HORTON Room: [address] IN ..#: [id number] Admission: 03/12/19 Attend Phys: Jovanni Wang Discharge: Date of : 51 Report #: [id number] SOCIAL HISTORY: Denies any alcohol, tobacco or illegal drug use. REVIEW OF SYSTEMS: Twelve-point review of systems is essentially negative except what is mentioned in the HPI. PHYSICAL EXAMINATION: VITAL SIGNS: Temperature 36.7, pulse 69, respirations 16, blood pressure 135/64. HEART: Regular rate and rhythm. LUNGS: Clear. ABDOMEN: Morbidly obese. Positive bowel sounds in all 4 quadrants with no masses or tenderness noted. RECTAL: Shows no external hemorrhoids that were noted, but he did complain of excessive pain constantly of that area during exam. LABORATORY DATA: Hemoglobin 10.3, white count 5.7, platelets 210. GFR 61. PT is 12, INR is 1.0. IMPRESSION: 1. Rectal pain. 2. Hemorrhoids, internal. 3. History of chronic constipation. 4. Urinary tract infection, complicated. 5. Gout. PLAN: 1. Continue with the MiraLax and stool softeners on a daily basis. 2. Continue over the counter cream that he has at the bedside. 3. Obtain records from his colonoscopy at [facility]. 4. The patient can follow up with his previous GI provider or colorectal surgeon regarding his hemorrhoids, but these will not be attended to during this hospitalization. Thank you for allowing us to participate in this patient's care. Please do not hesitate to call with any questions in regard to this consult. By: 1240 [id number] Monique DO /nt
[~2019-03-12 14:51] MED LIST changes: +HUMALOG100 UNIT/1 SUBQ; +MIRALAX17 GM PO; +MS CONTIN 30 MG30 MG PO; +PREDNISONE 10 M10 MG PO; +SENNA8.6 MG PO; +TRESIBA FL100 UNIT/1; +ZANAFLEX4 MG PO
[2019-03-12 14:57] VITALS: BP 128/67
[2019-03-12] MEDS ORDERED: TRESIBA FL100 UNIT/1 SUBQ (15:03)
[2019-03-12 15:32] LABS: ABSOLUTE BASOPHILS 0.1 thou/uL (0.0-0.2); ABSOLUTE EOSINOPHILS 0.1 thou/uL (0.0-0.7); ABSOLUTE LYMPHOCYTES 0.8 thou/uL (0.8-5.3); ABSOLUTE MONOCYTES 0.8 thou/uL (0.0-1.2); ABSOLUTE NEUTROPHILS 7.7 thou/uL (1.6-8.1); BASOPHILS 1.3 %; EOSINOPHILS 1.5 %; HEMATOCRIT 32.2 % (42.0-52.0); HEMOGLOBIN 10.6 gm/dL (14.0-18.0); LYMPHOCYTES 8.5 %; MCH 28.1 pg (26.0-34.0); MCHC 32.9 g/dL (28.0-37.0); MCV 85.4 fL (80.0-100.0); MONOCYTES 8.2 %; MPV 7.6 fl. (7.2-11.1); NUCLEATED RBCS 0 /100WBC; PLATELET COUNT* 222 thou/uL (150-400); POLYS 80.5 %; RBC 3.77 mil/uL (4.50-6.00); WBC 9.6 thou/uL (4.0-11.0)
[2019-03-12 15:42] LABS: ANION GAP 9 mmol/L (7-16); APTT 29.9 Seconds (25.0-31.3); BUN 43 mg/dL (7-18); CALCIUM 9.6 mg/dL (8.5-10.1); CHLORIDE 103 mmol/L (98-107); CO2 25 mmol/L (21-32); CREATININE 1.5 mg/dL (0.6-1.3); GLUCOSE 270 mg/dL (70-99); INR 1.2; POTASSIUM 4.7 mmol/L (3.5-5.1); SODIUM 137 mmol/L (136-145)
[2019-03-12 15:53] LABS: ALBUMIN 2.6 g/dL (3.4-5.0); ALKALINE PHOSPHATASE 66 U/L (46-116); NT-PRO BRAIN NAT PEPTIDE 134 pg/mL (<300); SGOT 12 U/L (15-37); SGPT 13 U/L (30-65); TOTAL BILIRUBIN 0.7 mg/dL (<0.1-1.0); TOTAL PROTEIN 7.2 g/dL (6.4-8.2); TROPONIN-I LEVEL <0.06 ng/mL (<0.06)
--- NOTE | 2019-03-12 16:19 | EKG ---
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 : 1955 Requested By: Jaycob Silvestre Order Number: [id number] MD: Demetris Coto Measurements Intervals [place] Rate: 104 P: 23 WV: 48 QRS: 214 QRSD: 111 T: 25 QT: 343 QTc: 452 Interpretive Statements Sinus tachycardia artifact noted Probable left atrial enlargement Low voltage, extremity and precordial leads Consider inferior infarct Compared to ECG 02/26/2019 11:07:10 Sinus rhythm no longer present Prolonged QT interval no longer present Myocardial infarct finding still present Electronically Signed On 03-12-2019 16:19:41 CDT by Demetris Coto [email or web address] <ELECTRONICALLY SIGNED> By: Demetris Coto MD, FAC 03/12/19 1619 1455 1455 Demetris Coto MD, [facility] /EPI
[2019-03-12 17:19] LABS: URINE BILIRUBIN NEGATIVE (Negative); URINE BLOOD NEGATIVE (Negative); URINE CLARITY CLEAR; URINE COLOR YELLOW; URINE GLUCOSE-RANDOM NEGATIVE (Negative); URINE KETONES TRACE (Negative); URINE LEUKOCYTES-REFLEX TRACE (Negative); URINE NITRITE-REFLEX NEGATIVE (Negative); URINE PROTEIN 1+ (Negative); URINE SPECIFIC GRAVITY 1.025 (1.005-1.030); URINE UROBILINOGEN 0.2 E.U./dl (0.2-1.0)
[2019-03-12 17:27] LABS: HYALINE CASTS 4-10 Moderate /LPF (None Seen); SQUAMOUS 4-10 Moderate /LPF (0-3)
[2019-03-12 17:28] LABS: BACTERIA-REFLEX 1-9 Few /HPF (None Seen); MUCUS None Seen strn/LPF (None Seen); URINE WBC-REFLEX 6-15 Few /HPF (0-5)
[2019-03-12 17:29] LABS: CRYSTALS None Seen /LPF (None Seen); URINE RBC None Seen /HPF (0-2)
[2019-03-12 17:48] VITALS: BP 145/29
[2019-03-12 21:10] VITALS: BP 134/60
[2019-03-13] VITALS: BP 121/56
[2019-03-13 04:00] VITALS: BP 137/67
--- NOTE | 2019-03-13 06:24 | NUR ---
PT AWAKE MOST OF SHIFT. ASSESSMENT DOCUMENTED. MEDS GIVEN PER E-MAR. IV PATENT. PT'S IV KEPT BEEPING SO HE WANTED A NEW IV. UNSUCCESSFUL IN GETTING A NEW IV FROM NURSES OR BUILDING CONSULTANT. PT THEN REFUSING TO HAVE FLUIDS IN IV STATING HE CAN NO LONGER TASTE THE SALINE. PT REFUSED REPOSTIONS THIS SHIFT. PT VOIDING PER URINAL WITH ASSISSTANCE. PICTURES OF WOUNDS TAKEN. WILL CONTINUE WITH PLAN OF CARE.
[2019-03-13 07:28] LABS: HEMATOCRIT 32.1 % (42.0-52.0); HEMOGLOBIN 10.3 gm/dL (14.0-18.0); MCH 27.4 pg (26.0-34.0); MCV 85.6 fL (80.0-100.0); MPV 7.7 fl. (7.2-11.1); NUCLEATED RBCS 0 /100WBC; PLATELET COUNT* 210 thou/uL (150-400); RBC 3.75 mil/uL (4.50-6.00); RDW-CV 16.7 % (10.5-14.5); WBC 5.7 thou/uL (4.0-11.0)
[2019-03-13 07:38] LABS: ALBUMIN 2.4 g/dL (3.4-5.0); CALCIUM 9.3 mg/dL (8.5-10.1); CREATININE 1.2 mg/dL (0.6-1.3); POTASSIUM 4.5 mmol/L (3.5-5.1); TOTAL BILIRUBIN 0.6 mg/dL (<0.1-1.0); TOTAL PROTEIN 6.9 g/dL (6.4-8.2)
[2019-03-13 07:51] LABS: ABSOLUTE LYMPHOCYTES 0.6 thou/uL (0.8-5.3); ABSOLUTE MONOCYTES 0.1 thou/uL (0.0-1.2); ANISOCYTOSIS 1+; PLATELET ESTIMATE ADEQUATE; POIKILOCYTOSIS 1+
[2019-03-13 08:00] VITALS: BP 125/67
--- NOTE | 2019-03-13 11:57 | NUR ---
ASSUMED CARE OF PATIENT THIS AM AT 0730. PATIENT IS ALERT AND ORIENTED X 4. HE C/O CHRONIC PAIN WITH ACTIVITY THIS AM. TELE SHOWS SR WITH 1ST DEGREE AVB. HIS BLOOD SUGARS HAVE BEEN ELEVATED. PATIENT ADVANCED TO HIGH DOSE SLIDING SCALE. DIET CHANGED TO CARB CONTROLLED. PATIENT ASSISTED WITH ADLS THROUGHOUT THE DAY. PATIENT REFUSING IV FLUIDS AT THIS TIME. HE IS ONLY WANTING TO TURN TO THE LEFT SIDE. PATIENTS BUTTOCKS ARE RED WITH SIGNS OF BREAKDOWN. BARRIER CREAM APPLIED. INCREASED ACTIVITY ENCOURAGED.
[2019-03-13 12:00] VITALS: BP 146/68
--- NOTE | 2019-03-13 13:54 | NUR ---
Nutrition: Pt assessed for low BMI. Error in recorded wt. Likely, should be 116kg, NOT 116#. More accurate BMI is 34.5. Defer further assessment at this time.
--- NOTE | 2019-03-13 14:43 | NUR ---
MET WITH PT TO DISCUSS HOME SITUATION/DC PLANNING. PT LIVES WITH AND ADULT SON. WORKS DURING THE DAY AND PER PT, SON IS ILL RIGHT NOW ALSO. PT WAS JUST DC'D FROM [facility] ON 03/08, SENT HOME WITH HH. [facility] SAW PT YESTERDAY AND SENT TO HOSPITAL. PT STATES UNABLE TO GET OUT OF HIS CHAIR, 'MY WRIST AND KNEE LOCKED UP.' PT REPORTS THAT [facility] HE WAS ABLE TO AMBULATE WITH WALKER, ALSO HAS W/C. BY YESTERDAY, UNABLE TO GET OUT OF THE CHAIR. PT OPEN TO WORKING WITH THERAPY, CONSIDERING SNF OR HOME W HH AGAIN IF ABLE. WILL FOLLOW
[2019-03-13 16:00] VITALS: BP 139/69
[2019-03-13 19:30] VITALS: BP 132/68
--- NOTE | 2019-03-14 03:52 | NUR ---
PT'S IV IN RIGHT AC INFILTRATED. IV ZOSYN STOPPED. MULTIPLE ATTEMPTS MADE TO START IV WITHOUT SUCCESS. BALA NOTIFY PHYSICAN IN AM FOR POSSIBLE PICC LINE PLACEMENT.
[2019-03-14 04:00] VITALS: BP 135/64
[2019-03-14 09:00] VITALS: BP 135/64
--- NOTE | 2019-03-14 11:35 | CON ---
[address] [address] CONSULTATION Name: HEATHER HORTON Room: [address] IN M.R.#: [id number] Admission: 03/12/19 Attend Phys: Jovanni Wang Discharge: Date of : 51 Report #: [id number] THIS REPORT FOR: //name// CC: Ulisses Foote DATE OF SERVICE: 03/13/2019 ATTENDING PHYSICIAN: Dr. Foote. REASON FOR EVALUATION: Complicated urinary tract infection recently with readmission. HISTORY OF PRESENT ILLNESS: Chart reviewed, patient examined. This is a 63-year-old man who was actually hospitalized earlier this month, was diagnosed with a complicated urinary tract infection with growth of Escherichia coli that was moderately resistant. From there went to a rehab facility and then subsequently discharged from there. Within a short period of time, he became progressively weak. He developed significant pain associated with the distal aspect of his left upper extremity as well as the left knee, and unable to ambulate. He did have associated systemic illness as well. He is not confirmed to have fevers, but had sweats, chills, and also anorexia with poor p.o. intake. On evaluation, he was felt to have dehydration. He was noted to have moderate pyuria, ultimately elevated uric acid. He was diagnosed with gout and has been on anti-inflammatory medicines. Urinalysis was sent for culture. He was empirically started on vancomycin, piperacillin and tazobactam. He has marginally improved, remains quite uncomfortable at this point, is unable to bear weight. He is not encephalopathic. Denies any significant pulmonary or gastrointestinal related complaints. ALLERGIES: ROSUVASTATIN AND BYETTA. CURRENT MEDICATIONS: Include Zosyn, gabapentin, oxycodone, morphine, aspirin, lisinopril, metoprolol, methylprednisolone, insulin lispro, enoxaparin, metformin, senna, ezetimibe, and p.r.n. analgesics. PAST MEDICAL HISTORY: Known diabetes mellitus type 2, non-insulin requiring. New onset of lower extremity dermatitis, history of neck abscess. SOCIAL HISTORY: Former smoker. No ethanol, no illicit drug use. FAMILY HISTORY: Noncontributory. REVIEW OF SYSTEMS: Otherwise, unremarkable 10-point review of systems with the exception of what is noted above in the [place] [address] CONSULTATION Name: HEATHER HORTON Room: [address]#: [id number] Admission: 03/12/19 Attend Phys: Jovanni Wang Discharge: Date of : 51 Report #: [id number] PHYSICAL EXAMINATION: GENERAL: He appears somewhat chronically ill, undernourished, is pleasant, cooperative, in moderate distress. VITAL SIGNS: Temperature 98.2, pulse 96, respirations 19, blood pressure 146/68. SKIN: Warm, dry. HEENT: Normocephalic. Extraocular muscles intact. NECK: Supple. LUNGS: Generally clear to auscultation. HEART: Borderline tachycardic. I do not appreciate murmur. ABDOMEN: Soft, nontender, nondistended. EXTREMITIES: Bilateral lower extremities have desquamating type eruption, erythematous, not particularly pruritic. There is no palpable tenderness, although he admits to peripheral neuropathy, left hand and wrist with swelling and inflammatory changes as well. GENITOURINARY: Deferred. RECTAL: Deferred. LABORATORY DATA: Blood cultures sterile thus far. Prealbumin of 13.8. CBC: White count of 5.7, H and H 10.3 and 32.1, platelets of 210. Electrolytes: Sodium 135, potassium 4.5, chloride 101, bicarbonate is 23, anion gap of 11, BUN and creatinine 37 and 1.2, glucose of 383. LFTs are unremarkable. Albumin 2.4, total protein 6.9, estimated GFR 61. Urinalysis with 6-15 white cells, 1-9 bacteria. Uric acid elevated at 10.9. Lactic acid initially was 1.7. ASSESSMENT: Complicated urinary tract infection, treated previously with readmission. Urinalysis showed moderate pyuria, not unreasonable to initiate empiric therapy, most of the pain and weakness is likely associated with acute gouty arthritis. Secondly, he has dermatitis, it is not entirely clear. The corticosteroids may well help it. They got systemic antifungal as well. It could be related to secondary yeast infection. We will see how he does clinically in the next 24-48 hours, await results. <ELECTRONICALLY SIGNED> By: Henrry Dial MD 03/14/19 1135 [id number] [id number] Dial MD /olinda
[2019-03-14 16:30] VITALS: BP 152/74
[2019-03-14 18:22] LABS: ALBUMIN 2.3 g/dL (3.4-5.0); CALCIUM 9.2 mg/dL (8.5-10.1); CREATININE 1.5 mg/dL (0.6-1.3); POTASSIUM 4.7 mmol/L (3.5-5.1); TOTAL BILIRUBIN 0.3 mg/dL (<0.1-1.0); TOTAL PROTEIN 6.6 g/dL (6.4-8.2)
--- NOTE | 2019-03-14 19:49 | NUR ---
I ASSUMED CARE OF THE PATIENT AT 0845. HE IS ALERT AND ORIENTED X4 AND IS UP WITH SBA X1. IS AT THE BEDSIDE. HE IS VERY NEEDED AND PARTICULAR. PAIN IS ALWAYS HIGH, BUT HE SLEEPS BETWEEN USING THE CALL LIGHT. HOURLY ROUNDING IS COMPLETED AND PATIENT NEEDS ARE MET. BED IS IN THE LOW LOCKED POSITION AND CALL LIGHT IS IN REACH. PATIENT REFUSES TURNS AND IF HE AGREES, HE IS A HARD TURN AND REPOSITIONS HIMSELF BACK TO HIS BACK. HE HAS SOME BREAKDOWN ON HIS BOTTOM. HE WAS A TELE TRANSFER TODAY. BLOOD SUGAR WAS HIGH AND PHARMACY TOOK A WHILE GETTING INSULIN TO THE UNIT. HE HAD A BM TODAY. HE REFUSES TO HOLD HIS OWN URINAL AND KEEPS ASKING EVERYONE TO PUT HIS HEMORRHOIDS BACK INSIDE. HE IS REQUESTING BATH TOWELS TO PEE IN. WILL CONTINUE TO MONITOR.
[2019-03-14 19:50] VITALS: BP 159/57
--- NOTE | 2019-03-15 06:42 | NUR ---
PT ALERT AND ORIENTED. VSS ON RA. ASSESSMENT DOCUMENTED. MEDS GIVEN PER EMAR. PT PROVIDES MINIMAL ASSIST FOR SELF. NEEDS ASSISTANCE WITH MOST ACTIVITIES. PT ENCOURAGED TO PARTICIPATE MORE IN CARING FOR SELF. FALL PRECAUTION IN PLACE. NOT VERY COMPLIANT WITH Q2 TURNS. CALL LIGHT WITHIN REACH. HOURLY ROUNTINGS MADE. WILL CONTINUE PLAN OF CARE.
[2019-03-15 08:00] VITALS: BP 159/81
--- NOTE | 2019-03-15 16:07 | NUR ---
ASSESSMENT COMPLETE. PT ALERT AND ORIENTED X4. PT GIVEN PRN PAIN MEDICATION NEEDED THROUGHOUT THE DAY. PT Q2 TURN, CREAM APPLIED TO BUTTOCK/SCROTUM WOUND. CREAMS APPLIED TO HEMORRHOIDS NEEDED. PT TOLERATING MEALS. ACCU CHECK ACHS. PT NEEDS ASSISTANCE WITH URINAL. UP ONE ASSIST WITH WALKER AND GAIT BELT. PT IS ON ROOM AIR, VSS. PT AMBULATED HALLWAY WITH PHYSICAL THERAPY THIS AFTERNOON. IV IN RIGHT FA, SALINE LOCKED AND FLUSHES WITHOUT COMPLICATIONS. CXR DONE TODAY. SEE ASSESSMENT AND VITALS FOR OTHER DETAILS. CALL LIGHT WITHIN REACH, WILL CONTINUE PLAN OF CARE
[2019-03-15 16:30] VITALS: BP 149/78
--- NOTE | 2019-03-15 17:45 | NUR ---
WOUND NURSE: PATIENT SEEN TODAY TO ADDRESS MINOR ABRASION ON BUTTOCKS AND SCROTUM WHICH APPEAR PARTIAL THICKNESS AT TIME OF THIS ASSESSMENT AND NO ACTIVE DRAINAGE. PATIENT IS INDEPENDENT WITH REPOSITIONING. PERINEAL AREA DOES LOOK EDEMATOUS AND WHICH MAY BE CONTRIBUTING. RECOMMENDED USE OF PHYTOPLEX AF MOISTURE BARRIER Q SHIFT FOR PROTECTION AND TO PROMOTE HEALING. BILATERAL LEGS PRESENT WITH DRY FLAKING SKIN AND WITH FISSURES ALONG THE ANKLES PROBABLE RELATED TO WEARING COMPRESSION STOCKINGS AT HOME. THESE AREAS ARE NOT OPEN OR DRAINING AT THE TIME OF THIS ASSESSMENT. RECOMMENDED MOISTURIZER OF CHOICE TO SUPPORT SKIN ELASTICITY AND PROTECTION. HIS TOOK NOTES AND WROTE DOWN SUGGESTIONS FOR ELTA OR EUCERIN CREAM ON LEGS NIGHTLY.
[2019-03-15 19:50] VITALS: BP 156/66
--- NOTE | 2019-03-16 06:11 | NUR ---
PT ALERT AND ORIENTED. VSS ON RA. ASSESSMENT DOCUMENTED. PT COMPLAINED OF NPC IN THE EARLY AM. WILL PASS ON TO DAYSHIFT NURSE FOR COUGH MED. PT AMBULATED TO BATHROOM THIS SHIFT WITH WALKER AND GAIT BELT ON STANDBY ASSIST. MEDS GIVEN PER EMAR. HOURLY ROUNDINGS MADE. WILL CONTINUE TO MONITOR. .
[2019-03-16 07:50] VITALS: BP 148/70
[2019-03-16] MEDS ORDERED: ALLOPURINOL 10100 M1 PO (08:53)
[2019-03-16] MEDS ORDERED: COLCHICINE0.6 MG PO (08:53)
[2019-03-16] MEDS ORDERED: TESSALON PERLE100 MG PO (08:53)
[2019-03-16] MEDS ORDERED: GUAIFENESIN400 MG PO (08:53)
[2019-03-16] MEDS ORDERED: OMEPRAZOLE40 MG PO (09:02)
[2019-03-16 11:00] VITALS: BP 148/70
--- NOTE | 2019-03-16 11:02 | NUR ---
Pt to dc home today with HH services to follow. SW spoke with pt to discuss safe dc planning and discussed recommendation for HH services; pt in agreement with HH and preference for [facility]. [place] spoke with [facility] intake who accepted referral, SW faxed needed information and dc summary/orders. [facility] [phone] fax [phone]
[2019-03-16] MEDS ORDERED: DIFLUCAN200 MG PO (11:23)
--- NOTE | 2019-03-16 12:50 | NUR ---
TUBAGRIPS PLACED ON PATIENT THIS AM, PHOTOS TAKEN OF LEGS YESENIA. PATIENT REFUSED PHOTO OF BUTTOCKS AND SCROTUM, EDUCATION GIVEN AND PATIENT STILL REFUSING. UP TO BATHROOM WITH ASSISTANCE OF GAIT BELT AND WALKER, VOIDING IN TOILET. PRN MORPHINE PO GIVEN PER OCT ORDERS THIS AM. IV DC'D. PATIENT VERBALIZES UNDERSTANDING OF PAPERWORK AND SCRIPTS. PATIENT TAKEN OUT VIA WHEELCHAIR WITH ALL BELONGINGS.
== END 2019-03-16 12:53 | disposition home health service (06) | DRG 682 ==
LOC: M.ERS 14:51 → M.ORTHSURG 16:32 → M.2W 16:32 → M.TBA-ER 16:32 → M.2W 18:05 → M.ORTHSURG 03-14 08:32
PROVIDERS: Family Medicine; ADMIT Internal Medicine
DX: N17.0 Acute kidney failure with tubular necrosis (principal); E43 Unspecified severe protein-calorie malnutrition; G92 Toxic encephalopathy; J18.9 Pneumonia, unspecified organism; M62.82 Rhabdomyolysis; F11.20 Opioid dependence, uncomplicated; E11.9 Type 2 diabetes mellitus without complications; M10.9 Gout, unspecified; L30.9 Dermatitis, unspecified; E66.01 Morbid (severe) obesity due to excess calories; I10 Essential (primary) hypertension; E78.00 Pure hypercholesterolemia, unspecified; K64.8 Other hemorrhoids; K62.89 Other specified diseases of anus and rectum; K59.00 Constipation, unspecified; G89.29 Other chronic pain; E86.9 Volume depletion, unspecified; I87.2 Venous insufficiency (chronic) (peripheral); S31.30XA Unspecified open wound of scrotum and testes, initial encounter; X58.XXXA Exposure to other specified factors, initial encounter; M11.20 Other chondrocalcinosis, unspecified site; M19.042 Primary osteoarthritis, left hand; M19.041 Primary osteoarthritis, right hand; Z90.49 Acquired absence of other specified parts of digestive tract; Z79.899 Other long term (current) drug therapy; Z79.4 Long term (current) use of insulin; Z79.84 Long term (current) use of oral hypoglycemic drugs; Z79.82 Long term (current) use of aspirin; Z88.8 Allergy status to other drugs, medicaments and biological substances; Z68.34 Body mass index [BMI] 34.0-34.9, adult; Z87.440 Personal history of urinary (tract) infections; Z87.891 Personal history of nicotine dependence; Z82.49 Family history of ischemic heart disease and other diseases of the circulatory system; Z83.3 Family history of diabetes mellitus; Y93.89 Activity, other specified; Y92.89 Other specified places as the place of occurrence of the external cause; Y99.8 Other external cause status

== ENCOUNTER 2019-08-17 23:27 | Inpatient (IN) | payer OTHER ==
[~2019-08-17] VITALS: Ht 182.9 cm; Wt 129.3 kg
[~2019-08-17 23:27] MED LIST changes: +ALLOPURINOL 10100 M1 PO; +COLCHICINE0.6 MG PO; +DIFLUCAN200 MG PO; +GUAIFENESIN400 MG PO; +TESSALON PERLE100 MG PO; +TRESIBA FL100 UNIT/1 SUBQ
[2019-08-17 23:29] VITALS: BP 167/108
[2019-08-18] VITALS (29 sets, daily range): BP systolic 77–162; BP diastolic 35–79
[2019-08-18 00:05] LABS: HEMATOCRIT 39.3 % (42.0-52.0); HEMOGLOBIN 12.6 gm/dL (14.0-18.0); MCH 28.8 pg (26.0-34.0); MCHC 32.2 g/dL (28.0-37.0); MCV 89.6 fL (80.0-100.0); MPV 8.1 fl. (7.2-11.1); NUCLEATED RBCS 0 /100WBC; PLATELET COUNT* 365 thou/uL (150-400); RBC 4.38 mil/uL (4.50-6.00); RDW-CV 15.9 % (10.5-14.5); WBC 24.1 thou/uL (4.0-11.0)
[2019-08-18 00:16] LABS: APTT 28.5 Seconds (25.0-31.3); INR 1.2; PROTIME 12.4 Seconds (9.20-11.50)
[2019-08-18 00:36] LABS: BE -7.6 mmol/L (-2 to +3); PCO2 VENOUS 52.7 mmHg (41.0-51.0); PO2 VENOUS 58.6 mmHg (35.0-45.0)
[2019-08-18 00:47] LABS: CREATININE 2.1 mg/dL (0.6-1.3); POTASSIUM 4.1 mmol/L (3.5-5.1)
[2019-08-18 01:01] LABS: ALBUMIN 3.6 g/dL (3.4-5.0); TOTAL BILIRUBIN 0.4 mg/dL (<0.1-1.0); TOTAL PROTEIN 7.5 g/dL (6.4-8.2)
[2019-08-18 03:14] LABS: INFLUENZA A ANTIGEN Negative (Negative); INFLUENZA B ANTIGEN Negative (Negative)
[2019-08-18 04:09] LABS: ABSOLUTE BASOPHILS 0.2 thou/uL (0.0-0.2); ABSOLUTE EOSINOPHILS 0.5 thou/uL (0.0-0.7); ABSOLUTE LYMPHOCYTES 0.7 thou/uL (0.8-5.3); ABSOLUTE MONOCYTES 1.7 thou/uL (0.0-1.2); ANISOCYTOSIS Occasional; PLATELET ESTIMATE ADEQUATE; TOXIC GRANULATION 2+
[2019-08-18 06:00] LABS: ALBUMIN 2.8 g/dL (3.4-5.0); CALCIUM 9.5 mg/dL (8.5-10.1); CREATININE 2.1 mg/dL (0.6-1.3); MAGNESIUM 1.6 mg/dL (1.8-2.4); PHOSPHORUS* 2.1 mg/dL (2.5-4.9); POTASSIUM 3.8 mmol/L (3.5-5.1)
[2019-08-18 09:09] LABS: BE 0.6 mmol/L (-2 to +3); PO2 93.5 mmHg (75.0-100.0); pH 7.447 (7.340-7.450)
[2019-08-18 10:54] LABS: ALBUMIN 2.5 g/dL (3.4-5.0); CALCIUM 9.3 mg/dL (8.5-10.1); MAGNESIUM 1.5 mg/dL (1.8-2.4); PHOSPHORUS* 1.9 mg/dL (2.5-4.9); POTASSIUM 3.4 mmol/L (3.5-5.1)
[2019-08-18 11:12] LABS: URINE BILIRUBIN NEGATIVE (Negative); URINE BLOOD 2+ (Negative); URINE CLARITY CLEAR; URINE COLOR YELLOW; URINE GLUCOSE-RANDOM NEGATIVE (Negative); URINE KETONES NEGATIVE (Negative); URINE LEUKOCYTES NEGATIVE (Negative); URINE NITRITE NEGATIVE (Negative); URINE PROTEIN 2+ (Negative); URINE SPECIFIC GRAVITY 1.025 (1.005-1.030); URINE UROBILINOGEN 0.2 E.U./dl (0.2-1.0)
[2019-08-18 11:24] LABS: CASTS None Seen /LPF (None Seen); CRYSTALS None Seen /LPF (None Seen); SQUAMOUS 0-3 Few /LPF (0-3); URINE RBC 0-2 Rare /HPF (0-2); URINE WBC 6-15 Few /HPF (0-5)
[2019-08-18 14:59] LABS: BE -2.3 mmol/L (-2 to +3); PCO2 VENOUS 36.8 mmHg (41.0-51.0); PO2 VENOUS 70.8 mmHg (35.0-45.0)
--- NOTE | 2019-08-18 15:37 | CON ---
[address] [address] CONSULTATION Name: HEATHER HORTON Room: [address] IN M.R.#: [id number] Admission: 08/18/19 Attend Phys: Jovanni Wang Discharge: Date of : 51 Report #: [id number] THIS REPORT FOR: //name// CC: Ulisses Foote DATE OF SERVICE: 08/18/2019 PULMONARY CRITICAL CARE CONSULT I was asked to see this 64-year-old gentleman for acute respiratory failure. HISTORY OF PRESENT ILLNESS: The patient is currently on the ventilator and is intubated. All of the information was obtained from chart, nursing staff. He was brought to the Emergency Room via EMS for altered mental status. His spouse noted that the patient was not feeling well, went to the bathroom, unable to get up for 10 hours. He was given Narcan in the Emergency Room with improvement of his mental status. He does take morphine and hydrocodone. He was intubated in the Emergency Room around 12:30. He was found to have elevated creatinine and blood sugar. He is currently on the ventilator. He is on propofol drip. PAST MEDICAL HISTORY: Diabetes mellitus, coronary artery disease. MEDICATIONS: Currently, he is on propofol, insulin drip, IV fluid. The patient was given levofloxacin and Zosyn in the Emergency Room. SOCIAL HISTORY: Unable to obtain. The patient is on the ventilator and sedated. FAMILY HISTORY: Unable to obtain. The patient is on the ventilator and sedated. REVIEW OF SYSTEMS: As mentioned as above. I have discussed the patient with RN and RT. Other systems are otherwise negative. PHYSICAL EXAMINATION: GENERAL: This is an obese gentleman. VITAL SIGNS: His O2 saturation on 50% FiO2 is 100%, respiratory rate 16, heart rate 99, temperature 37.8, temperature max 38.8, blood pressure 114/59. HEENT: Normocephalic, atraumatic. Pupils equal, round, reactive to light. He is orally intubated. Nose is clear. NECK: There is no lymphadenopathy or thyromegaly. CARDIOVASCULAR: Regular rate and rhythm. PM[place] [address] CONSULTATION Name: HEATHER HORTON Room: [address] IN [facility]#: [id number] Admission: 08/18/19 Attend Phys: Jovanni Wang Discharge: Date of : 51 Report #: [id number] CHEST: Inspection is normal. LUNGS: Clear to auscultation. Percussions within normal limit. ABDOMEN: Soft. Bowel sounds are good. There is no mass. EXTREMITIES: There is redness and edema. NEUROLOGIC: He is on the ventilator and sedated. SKIN: Chronic changes. LYMPHATICS: There is no lymphadenopathy. LABORATORY DATA: I reviewed the following lab data: Chest x-ray shows ET tube is in good position. There is no infiltrate. ABG: pH 7.2, pCO2 of 52, pO2 of 58 on assist control rate of 14, tidal volume 600, PEEP of 5, FiO2 of 55%. Sodium 141, potassium 3.8, chloride 104, CO2 of 26, glucose 322, BUN 51, creatinine 2.1, magnesium 2. CK 12,968. Troponin 2.48. BNP 943. Lipase 230. Urine drug screen was positive for dihydrocodeine, hydrocodone, norhydrocodone, methadone. Lactic acid 2.5. Influenza A and B was negative. IMPRESSION: 1. Acute hypoxemic respiratory failure, multifactorial in etiology. 2. Diabetic ketoacidosis. 3. Encephalopathy. 4. Acute kidney injury. 5. Obesity, probable obstructive sleep apnea-hypopnea syndrome. 6. Elevated troponin ? myocardial infarction. 7. Elevated CK ? rhabdomyolysis. PLAN AND RECOMMENDATIONS: 1. Titrate FiO2 to keep O2 saturation 94%. 2. Change vent setting to assist control rate of 20, tidal volume 600, FiO2 40%, PEEP of 5. We will do ABG in 1 hour. 3. Agree with DKA protocol. 4. Continue antibiotic. 5. Follow up cultures. 6. Elevate head of bed. 7. Continue IV fluid. 8. May consider Cardiology consultation. 9. May consider Nephrology consultation. 10. The findings and recommendations were discussed with RN, RT [place] [address] CONSULTATION Name: HEATHER HORTON Room: [address] IN M.R.#: [id number] Admission: 08/18/19 Attend Phys: Jovanni Wang Discharge: Date of : 51 Report #: [id number] Thank you very much for allowing me to participate in care of this very nice gentleman. <ELECTRONICALLY SIGNED> By: Primitivo Marinelli MD 08/18/19 1537 0804 [id number] Marinelli MD /nt
--- NOTE | 2019-08-18 18:39 | NUR ---
PATIENT REM,AINS SEDATED ON VENT. POTASSIUM MAG AND PHOS REPLACED, REMAINS ON LEVO DRIP AT 3. RT IJ REMAINS PATENT. GARDINER PLACED BY DR GARDNRE PATENT URINE REMAINS CONCENTRATED. LEVO IS AT 3MCG. PROPOFOL AT 40 MCG. CAME TO SEE PT STATED WOUNDS ON PT BUTTOCKS AND SCROTUM SHE HAS BEEN TREATING. STATED PT WALKS FROM BED TO BATHROOM. SHE STATED HE REFUSED TX UNTIL SHE CALLED AMBULANCE.
[2019-08-18 20:39] LABS: PHOSPHORUS* 3.1 mg/dL (2.5-4.9); POTASSIUM 3.8 mmol/L (3.5-5.1)
[2019-08-19] VITALS (22 sets, daily range): BP systolic 99–145; BP diastolic 55–79
--- NOTE | 2019-08-19 04:06 | NUR ---
ASSUMED CARE AT 1900H, ON VENT AT 40% AND ON PROPOFOL AT 40MIC/HR.LEVO DC AT 2110H AND MAINTAINING MAP ABOVE 60.INSULIN MAINTAIN AT 2IU/HR.NO DISTRESS NOTED.PT FOLLOWED COMMAND AND OPENED HIS EYES WHEN ASKED.CONTINUE MONITORING AND TOWARD GOALS.
[2019-08-19 04:57] LABS: HEMATOCRIT 25.8 % (42.0-52.0); MCH 29.6 pg (26.0-34.0); MCHC 33.9 g/dL (28.0-37.0); MCV 87.2 fL (80.0-100.0); MPV 7.8 fl. (7.2-11.1); RBC 2.96 mil/uL (4.50-6.00); RDW-CV 15.9 % (10.5-14.5); WBC 10.9 thou/uL (4.0-11.0)
[2019-08-19 04:58] LABS: HEMOGLOBIN 8.7 gm/dL (14.0-18.0)
[2019-08-19 05:04] LABS: ALBUMIN 2.1 g/dL (3.4-5.0); CALCIUM 8.8 mg/dL (8.5-10.1); CREATININE 1.7 mg/dL (0.6-1.3); MAGNESIUM 2.1 mg/dL (1.8-2.4); PHOSPHORUS* 3.3 mg/dL (2.5-4.9); POTASSIUM 3.5 mmol/L (3.5-5.1)
[2019-08-19 05:33] LABS: BE -2.3 mmol/L (-2 to +3); PCO2 32.5 mmHg (35.0-45.0); PO2 101.3 mmHg (75.0-100.0)
--- NOTE | 2019-08-19 07:22 | CON ---
[address] [address] CONSULTATION Name: HEATHER HORTON Room: [address] IN M.R.#: [id number] Admission: 08/18/19 Attend Phys: Jovanni Wang Discharge: Date of : 51 Report #: [id number] THIS REPORT FOR: //name// CC: Ulisses Foote DATE OF SERVICE: 08/18/2019 INFECTIOUS DISEASE CONSULTATION ATTENDING PHYSICIAN: Lazaro Foote DO REASON FOR EVALUATION: Febrile illness associated with multiorgan dysfunction, marked hyperglycemia with marked lactic acidemia in the setting of uncontrolled diabetes mellitus. HISTORY OF PRESENT ILLNESS: Chart reviewed, patient examined. This is a 64-year-old with known history of diabetes mellitus type 2, insulin requiring, presented in extremis in the Emergency Room. At this point, he is intubated, sedated on the vent. Apparently per spouse, woke up, feeling cold. He persisted on the stool for extended period of time due to profound weakness, presumably his blood sugar was markedly elevated in excess of 400. Does have a history of chronic pain, utilizing narcotics. He was given Narcan and did improve his mentation somewhat. On evaluation, was found to have marked elevation of lactic acid to 8. Creatinine was 2.1. Influenza antigen was negative. White count was 24,000. He was started empirically on combination therapy with piperacillin/tazobactam as well as levofloxacin, given a dose of vancomycin. ALLERGIES: ROSUVASTATIN, BYETTA. CURRENT MEDICATIONS: Include Zosyn, ipratropium and albuterol inhaler, levofloxacin, prochlorperazine, promethazine. PAST MEDICAL HISTORY: History of diabetes, dermatitis including venous stasis insufficiency of lower extremity. SOCIAL HISTORY: Former smoker. No ethanol. No illicit drug use. FAMILY HISTORY: Noncontributory. REVIEW OF SYSTEMS: Unobtainable. PHYSICAL EXAMINATION: GENERAL: He is morbidly obese. He is supine. He is sedated. He is maintained on the vent via an endotracheal tube. He does have an [place] [address] CONSULTATION Name: HEATHER HORTON Room: [address] IN [facility]#: [id number] Admission: 08/18/19 Attend Phys: Jovanni Wang Discharge: Date of : 51 Report #: [id number] VITAL SIGNS: Temperature max 101.9 and more recently 100.1, pulse 99, respirations 20, blood pressure 114/59, it is not a pressor rated. HEENT: Normocephalic. Extraocular muscles intact. NECK: Supple. LUNGS: Few scattered coarse breath sounds at the bases. HEART: Borderline tachycardic, regular, occasional ectopy, do not appreciate murmur. ABDOMEN: Morbidly obese, soft. There are no apparent peritoneal signs. EXTREMITIES: Lower extremities have changes with venous stasis insufficiency, dermatitis, perhaps a component of cellulitis. GENITOURINARY: Deferred. RECTAL: Deferred. LABORATORY DATA: Troponin did go up to 0.27. Serial lactic acids have decreased from 8.0 down to 2.5. Most recent ABGs: pH 7.447, pCO2 of 3.6, pO2 of 93.5, FiO2 of 40%. Chest x-ray: Mild bibasilar infiltrates. Electrolytes: Sodium 143, potassium 4.1, chloride 102, bicarbonate is 20, anion gap of 21, BUN and creatinine of 49 and 2.1. Spot glucose of 447. LFTs remarkable for AST of 292, ALT of 60, albumin is 3.6. Total protein of 7.5. Estimated GFR of 32. Influenza antigen was negative. ASSESSMENT AND PLAN: Early sepsis. It is not entirely clear as to the source. Agree with empiric antimicrobial therapy. Certainly has multiple organ dysfunction at this point. Would focus on diabetes control and correct the acidemia. Await culture results. Try to wean off support as allowed. Discussed with Dr. Foote. <ELECTRONICALLY SIGNED> By: Henrry Dial MD 08/19/19 0722 1103 [id number] Dial MD /nt
[2019-08-19 08:29] LABS: PCO2 31.5 mmHg (35.0-45.0); PO2 108.9 mmHg (75.0-100.0); pH 7.432 (7.340-7.450)
--- NOTE | 2019-08-19 08:43 | EKG ---
[place] [address] ELECTROCARDIOGRAM REPORT Name: HEATHER HORTON Room: [address] ADM IN .R.#: [id number] Admission: 08/18/19 Attend Phys: Jovanni Wang Discharge: Date of : 51 Report #: [id number] THIS REPORT FOR: //name// [facility] ED Test Date: 2019-08-17 Test Time: 23:38:56 Pat Name: HEATHER HORTON Department: Room: [facility] Gender: M Operations Administrative Assistant: TESS : 1955 Requested By: Leonardo Aquino Order Number: [id number] MD: Demetris Coto Measurements Intervals [place] Rate: 126 P: 0 TN: 53 QRS: 211 QRSD: 90 T: 34 QT: 286 QTc: 415 Interpretive Statements Sinus tachycardia artifact noted poor r wave progression low voltage Baseline wander in lead(s) I,III,aVL,V2,V6 Compared to ECG 03/12/2019 14:55:28 No significant changes Electronically Signed On 08-19-2019 8:42:51 CURER FOAM RUBBER by Demetris Coto [email or web address] <ELECTRONICALLY SIGNED> By: Demetris Coto MD, FAC 08/19/19 0842 2338 Demetris Coto MD, [facility] /EPI
--- NOTE | 2019-08-19 10:55 | NUR ---
Nutrition: Consult recevied for "noncompliant with DM." Pt is getting extubated today. Does have wounds on feet. Wt: 287#. RD will educate at later time when more appropriate, out of ICU. F/u 08/23/19.
--- NOTE | 2019-08-19 10:55 | NUR ---
PT HAD SUCCESSFUL WEENING TRIAL.PT EXTUBATED @ 1039.NO COMPLICATIONS.PT PLACED ON 3L O2 NC WITH BIPAP PRN/HS.OG REMOVED.
--- NOTE | 2019-08-19 11:10 | NUR ---
PT.ON VENT. PLAN TO EXTUBATE LATER TODAY. NO VISITORS AT BEDSIDE. PER NURSING PT.LIVES WITH . APPARENTLY SAT ON TOILET 10 HRS AT HOME PRIOR TO CALL 911. CM WILL CALL TO DISCUSS.
[2019-08-19 11:56] LABS: TROPONIN-I LEVEL 0.43 ng/mL (<0.06)
--- NOTE | 2019-08-19 12:45 | 2DMMODE ---
[place] [address] 2 D/M-MODE ECHOCARDIOGRAM Name: HEATHER HORTON Room: [address] ADM IN .R.#: [id number] Admission: 08/18/19 Attend Phys: Lazaro Foote Discharge: Date of : 51 Date of Service: 08/19/19 1245 Report #: [id number] THIS REPORT FOR: //name// APPROVED REPORT Study performed: 08/19/2019 09:14:18 EXAM: Comprehensive 2D, Doppler, and color-flow Echocardiogram Patient Location: Bedside BSA: 2.48 HR: 80 bpm BP: 122/69 mmHg Other Information Study Quality: Fair Indications Non STEMI Elevated Troponin 2D Dimensions IVSd: 11.35 (7-11mm) LVOT Diam: 22.53 (18-24mm) LVDd: 46.21 mm PWd: 11.57 (7-11mm) Ascending Ao: 41.98 (22-36mm) LVDs: 34.89 (25-40mm) Aortic Root: 34.05 mm Volumes Left Atrial Volume (Systole) LA ESV Index: 14.00 mL/m2 Aortic Valve AoV Peak Juan Francisco.: 1.00 m/s AO Peak Gr.: 3.96 mmHg LVOT Max P.89 mmHg AO Mean Gr.: 2.55 mmHg LVOT Mean P.53 mmHg LVOT Max V: 0.85 m/s AO V2 VTI: 17.77 cm LVOT Mean V: 0.57 m/s JACKIE (VTI): 3.87 cm2 LVOT V1 VTI: 17.25 cm Mitral Valve E/A Ratio: 0.78 MV Decel. Time: 194.76 ms MV E Max Juan Francisco.: 0.63 m/s MV PHT: 56.48 [place] [address] 2 D/M-MODE ECHOCARDIOGRAM Name: HEATHER HORTON SHON Room: [address] IN .R.#: [id number] Admission: 08/18/19 Attend Phys: Lazaro Foote Discharge: Date of : 51 Date of Service: 08/19/19 1245 Report #: [id number] MVA (PHT): 3.90 cm2 TDI E/Lateral E': 5.73 E/Medial E': 7.00 Medial E' Juan Francisco.: 0.09 m/s Lateral E' Juan Francisco.: 0.11 m/s Pulmonary Valve PV Peak Juan Francisco.: 1.07 m/s PV Peak Gr.: 4.59 mmHg Tricuspid Valve RAP Estimate: 5.00 mmHg TR Peak Gr.: 22.03 mmHg RVSP: 27.03 mmHg PA Pressure: 27.03 mmHg Left Ventricle The left ventricle is normal size. No obvious wall motion abnormalities identified. There is normal left ventricular wall thickness. Left ventricular systolic function is grossly normal. LVEF is 55-60%. Grade I - abnormal relaxation pattern. Right Ventricle The right ventricle is normal size. The right ventricular systolic function is normal. Atria The left atrium size is normal. The right atrium size is normal. Aortic Valve The aortic valve is normal in grossly structure. No aortic regurgitation is present. There is no aortic valvular stenosis. Mitral Valve The mitral valve is grossly normal in structure. Trace mitral regurgitation. No evidence of mitral valve stenosis. Tricuspid Valve The tricuspid valve is grossly normal in structure. Trace tricuspid regurgitation. Pulmonic Valve Pulmonic valve is not well visualized. There is no pulmonic [place]vular [place] [address] 2 D/M-MODE ECHOCARDIOGRAM Name: HEATHER HORTON Room: [address] IN [facility]#: [id number] Admission: 08/18/19 Attend Phys: Lazaro Foote Discharge: Date of : 51 Date of Service: 08/19/19 1245 Report #: [id number] Great Vessels The aortic root is normal in size. The ascending aorta is mildly dilated. (4.2 cm) IVC is normal in size and collapses >50% with inspiration. Pericardium There is no pericardial effusion. <Conclusion> Technically limited study The left ventricle is normal size. There is normal left ventricular wall thickness. Left ventricular systolic function is grossly normal. LVEF is 55-60%. Grade I - abnormal relaxation pattern. No obvious wall motion abnormalities identified. The ascending aorta is mildly dilated. (4.2 cm) IVC is normal in size and collapses >50% with inspiration. <ELECTRONICALLY SIGNED> By: George Nogueira MD, FACC 08/19/19 1245 1245 1245 George Nogueira MD, FACC /INF
--- NOTE | 2019-08-19 14:13 | NUR ---
WOUND NURSE: PATIENT SEEN TO ADDRESS LESIONS ON BUTTOCKS & PERINEUM AND RIGHT LATERAL FOOT. ALL CLEANSED WITH SOAP AND WATER, RINSED WITH WATER, THEN PATTED DRY. DFU ON RIGHT LATERAL FOOT MEASURING 0.5 X 0.5 X 0.2 CM CONTAINS PINK GRANULATING TISSUE IN THE WOUND BED, NO REDNESS, WARMTH, OR INDURATION, SCANT SEROUS DRAINAGE. APPLIED SKIN PRP TO PERIWOUND, THEN AQUACEL AG TO WOUND BED, THEN COVERED WITH BORDERED FOAM DRESSING. BUTTOCKS AND PERINEUM APPLIED PHYTOPLEX AF OINTMENT TOPICALLY TO AFFECTED AREAS. PATIENT REPOSITIONED ON HIS SIDE WITH HIS NURSE'S ASSISTANCE. PATIENT INSTRUCTED ON IMMPORTANCE OF FREQUENT REPOSITIONING TO OFFLOAD PRESSURE AND PROMOTE HEALING TO ALL LESIONS. REINFORCEMENTS OF INSTRUCTION IS INDICATED.
--- NOTE | 2019-08-19 14:35 | EKG ---
[place] [address] ELECTROCARDIOGRAM REPORT Name: HEATHER HORTON Room: [address] ADM IN M.R.#: [id number] Admission: 08/18/19 Attend Phys: Jovanni Wang Discharge: Date of : 51 Report #: [id number] THIS REPORT FOR: //name// [facility] ED Test Date: 2019-08-17 Test Time: 23:41:45 Pat Name: HEATHER HORTON Department: Room: [address] Gender: M Fire Patroller: TESS : 1955 Requested By: Lazaro Foote Order Number: [id number] Vahe MD: George Nogueira Measurements Intervals [place] Rate: 127 P: HI: QRS: 210 QRSD: 93 T: 7 QT: 310 QTc: 451 Interpretive Statements Sinus tachycardia Abnormal R-wave progression, late transition Inferior infarct, old Baseline wander in lead(s) V2 Compared to ECG 08/17/2019 23:38:56 Myocardial infarct finding now present Poor R-wave progression no longer present Electronically Signed On 08-19-2019 14:34:49 PLSQL DEVELOPER by George Nogueira [email or web address] <ELECTRONICALLY SIGNED> By: George Nogueira MD, FACC 08/19/19 1434 [id number] [id number] George Nogueira MD, FACC /EPI
--- NOTE | 2019-08-19 17:25 | NUR ---
VSS.SERVICING REP IN PLACE WITH NO CHANGES.PT REMAINS ON 1L O2 NC.BIPAP PRN/HS.PT PROGRESSING TOWARDS GOALS.C/O PAIN IN BACK-REPOSITIONING Q2 HOUR DONE.IV FLUIDS INFUSING PER ORDERS.IV ANTIBIOTICS GIVEN.INSULIN DRIP D/C- PT NOW ACHS WITH SLIDING SCALE INSULIN ORDERED.PT PASSED BEDSIDE SWALLOW STUDY AND CARB CONTROL DIET STARTED.PT TOLERATING DIET.ECHO COMPLETED.PT INFORMED OF PLAN OF CARE AND COMMUNICATES UNDERSTANDING.WILL CONTINUE TO MONITOR FOR DURATION OF SHIFT.
--- NOTE | 2019-08-19 20:07 | NUR ---
RECEIVED REPORT AND ASSUMED CARE AT 1900. VSS. ICU MONITORING IN PLACE. PT REPORTS PAIN, PRN MEDICATION ADMIN PER ORDERS. ASSESSMENT COMPLETED CHARTED. DISCUSSED PLAN OF CARE WITH PT, VERBALIZED UNDERSTANDING. BED LOCKED IN LOWEST POSITION, CALL LIGHT WITHIN REACH. BED ALARM ON.
[2019-08-20] VITALS (19 sets, daily range): BP systolic 118–147; BP diastolic 50–78
[2019-08-20 05:07] LABS: ABSOLUTE BASOPHILS 0.1 thou/uL (0.0-0.2); ABSOLUTE EOSINOPHILS 0.4 thou/uL (0.0-0.7); ABSOLUTE LYMPHOCYTES 1.8 thou/uL (0.8-5.3); ABSOLUTE MONOCYTES 0.5 thou/uL (0.0-1.2); ABSOLUTE NEUTROPHILS 6.3 thou/uL (1.6-8.1); BASOPHILS 0.8 %; EOSINOPHILS 4.5 %; HEMATOCRIT 26.5 % (42.0-52.0); HEMOGLOBIN 9.1 gm/dL (14.0-18.0); LYMPHOCYTES 19.8 %; MCH 29.9 pg (26.0-34.0); MCHC 34.3 g/dL (28.0-37.0); MCV 87.2 fL (80.0-100.0); MONOCYTES 5.9 %; MPV 7.9 fl. (7.2-11.1); NUCLEATED RBCS 0 /100WBC; PLATELET COUNT* 222 thou/uL (150-400); RBC 3.04 mil/uL (4.50-6.00); RDW-CV 15.7 % (10.5-14.5); WBC 9.2 thou/uL (4.0-11.0)
[2019-08-20 05:30] LABS: ALKALINE PHOSPHATASE 52 U/L (46-116); ANION GAP 12 mmol/L (7-16); BUN 24 mg/dL (7-18); CALCIUM 8.2 mg/dL (8.5-10.1); CHLORIDE 107 mmol/L (98-107); CO2 22 mmol/L (21-32); CREATININE 1.2 mg/dL (0.6-1.3); GLUCOSE 225 mg/dL (70-99); PHOSPHORUS* 2.5 mg/dL (2.5-4.9); POTASSIUM 3.6 mmol/L (3.5-5.1); SGOT 80 U/L (15-37); SGPT 35 U/L (30-65); SODIUM 141 mmol/L (136-145); TOTAL BILIRUBIN 0.3 mg/dL (<0.1-1.0); TOTAL PROTEIN 6.1 g/dL (6.4-8.2)
--- NOTE | 2019-08-20 14:16 | EKG ---
[place] [address] ELECTROCARDIOGRAM REPORT Name: HEATHER HORTON Room: [address] ADM IN M.R.#: [id number] Admission: 08/18/19 Attend Phys: Jovanni Wang Discharge: Date of : 51 Report #: [id number] THIS REPORT FOR: //name// [facility] Test Date: 2019-08-19 Test Time: 20:28:41 Pat Name: HEATHER HORTON Department: Room: [address] Gender: M Psychologist Research Assistant: RB : 1955 Requested By: Lazaro Foote Order Number: [id number] Reading MD: Demetris Coto Measurements Intervals [place] Rate: 82 P: 40 MI: 156 QRS: 234 QRSD: 92 T: 0 QT: 402 QTc: 470 Interpretive Statements Sinus rhythm low voltage Abnormal R-wave progression, late transition Inferior infarct, old Compared to ECG 08/17/2019 23:41:45 Sinus tachycardia no longer present Myocardial infarct finding still present Electronically Signed On 08-20-2019 14:15:48 ANTI TANK MISSILEMAN by Demetris Coto [email or web address] <ELECTRONICALLY SIGNED> By: Demetris Coto MD, FACC 08/20/19 1415 27 27 Demetris Coto MD, [facility] /EPI
--- NOTE | 2019-08-20 16:41 | NUR ---
CM TRIED SEVERAL TIMES TO CALL TODAY TO DISCUSS POC WITH HER ABOUT PT. LEFT VOICE MAILS. NO RETURN CALLS. PER REVIEW OF CHART AND IN SPEAKING WITH NURSING, PT.HAS A WALKER AND WC AT HOME. HE ONLY WALKS SHORT DISTANCES AT HOME. WOULD NOT LET CALL EMS TO HELP GET HIM OFF TOILET AT HOME. IS NON COMPLIANT AND WANTS THINGS HIS WAY. HAS USED [facility] IN THE PAST FOR HOME HEALTH. MAY NEED SNF AT DISCHARGE.
--- NOTE | 2019-08-20 18:56 | NUR ---
VSS.PT DOWNGRADED TO M/S STATUS.PT REMAINS ON 1L O2 NC.PTROGRESSING TOWARDS GOALS.PAIN MANAGED WELL WITH PO MEDICATIONS.IV PATENT AND SECURE WITH IV ANTIBIOTICS GIVEN.GARDINER SECURE AND PATENT WITH ADEQUATE OUTPUT.PT HAS HAD POOR APPETITE BECAUSE HE STATES THE FOOD IS GROSS.PT AND INFORMED OF PLAN OF CARE AND COMMUNICATES UNDERSTANDING.HOURLY ROUNDING COMPLETED FOR PT SAFETY.CALL LIGHT AND FALL PRECAUTIONS IN PLACE.WILL CONTINUE TO MONITOR FOR DURATION OF SHIFT.
--- NOTE | 2019-08-20 20:15 | NUR ---
RECEIVED REPORT AND ASSUMED CARE AT 1900. VSS. ICU. PT REPORTS PAIN, PRN MEDICATION PER ORDERS. ASSESSMENT COMPLETED CHARTED. PT M/S. BED LOCKED IN LOWEST POSITION, CALL LIGHT WIHTIN REACH, BED ALARM ON.
[2019-08-21 02:41] LABS: ABSOLUTE EOSINOPHILS 0.7 thou/uL (0.0-0.7); ABSOLUTE LYMPHOCYTES 2.2 thou/uL (0.8-5.3); ABSOLUTE MONOCYTES 0.6 thou/uL (0.0-1.2); ABSOLUTE NEUTROPHILS 5.2 thou/uL (1.6-8.1); BASOPHILS 0.5 %; EOSINOPHILS 8.6 %; HEMATOCRIT 26.6 % (42.0-52.0); HEMOGLOBIN 9.1 gm/dL (14.0-18.0); LYMPHOCYTES 25.2 %; MCH 29.5 pg (26.0-34.0); MCHC 34.2 g/dL (28.0-37.0); MCV 86.2 fL (80.0-100.0); MONOCYTES 6.3 %; MPV 7.8 fl. (7.2-11.1); NUCLEATED RBCS 0 /100WBC; PLATELET COUNT* 234 thou/uL (150-400); POLYS 59.4 %; RBC 3.09 mil/uL (4.50-6.00); RDW-CV 15.9 % (10.5-14.5); WBC 8.7 thou/uL (4.0-11.0)
[2019-08-21 02:55] LABS: CALCIUM 8.2 mg/dL (8.5-10.1); POTASSIUM 3.5 mmol/L (3.5-5.1); TOTAL BILIRUBIN 0.3 mg/dL (<0.1-1.0)
[2019-08-21 08:08] VITALS: BP 161/69
--- NOTE | 2019-08-21 10:31 | CON ---
[address] [address] CONSULTATION Name: HEATHER HORTON Room: [address] IN M.R.#: [id number] Admission: 08/18/19 Attend Phys: Jovanni Wang Discharge: Date of : 51 Report #: [id number] THIS REPORT FOR: //name// CC: Ulisses Foote DATE OF SERVICE: 08/19/2019 The patient is in the ICU. HISTORY OF PRESENT ILLNESS: The patient is a 64-year-old male who was brought to the Emergency Room by EMS in the context of altered mental status. He had been in the bathroom and unable to arise for approximately 10 hours. CK was slightly less than 13,000 units. The patient was on the ventilator, but at this point is extubated and is responding appropriately to my questioning. He denies chest discomfort at any time, and as noted dyspnea, which has improved markedly of late. PAST MEDICAL HISTORY: Remarkable for diabetes and coronary artery disease. He has been treated with insulin, IV fluids, and antibiotics. PHYSICAL EXAMINATION: GENERAL: Demonstrates an overweight, middle-aged male. VITAL SIGNS: Blood pressure is 140/70, pulse rate 105, respirations 20 per minute. NECK: Jugular venous pressure is difficult to ascertain. CHEST: A few rhonchi are noted. CARDIAC: Reveals a rapid regular rhythm. ABDOMEN: Moderately obese. EXTREMITIES: Satisfactorily perfused. LABORATORY DATA: Revealed a CK of 12,968. Troponin was minimally elevated at 2.48. BNP of 943. Echocardiogram is reviewed today and demonstrates normal systolic function with estimated ejection fraction of 55-60% without segmental wall motion abnormalities. There is mild diastolic dysfunction. IMPRESSION: 1. Acute respiratory failure. 2. Rhabdomyolysis. 3. Diabetic ketoacidosis. 4. Minimal increase in troponin I. 5. [place] [address] CONSULTATION Name: HEATHER HORTON Room: [address]#: [id number] Admission: 08/18/19 Attend Phys: Jovanni Wang Discharge: Date of : 51 Report #: [id number] RECOMMENDATIONS: At this point, continue supportive therapy is indicated. I detect nothing to suggest acute cardiac etiology for his acute decompensation respiratory failure. As noted above, echocardiogram demonstrates normal left ventricular cavitary size, wall thickness, and systolic function. He has mild diastolic dysfunction. SUGGESTIONS: Continue supportive therapy. No additional cardiovascular testing is indicated at this time. Critical care time is 35 minutes from 13:50 to 14:25 on 08/19/2019. <ELECTRONICALLY SIGNED> By: Vipul Denis MD, [facility] 08/21/19 1031 1426 [id number] Denis MD, FACC /nt
--- NOTE | 2019-08-21 18:51 | NUR ---
PATIENT TRANSFERED TO 106 REPORT GIVEN TO NATHALIE.
--- NOTE | 2019-08-21 19:03 | NUR ---
PATIENT ARRIVED TO UNIT AT 1845. ALERT AND ORIENTED X 4. VITAL SIGNS STABLE ON ROOM AIR. IV PATENT WITH FLUIDS INFUSING. GARDINER PATENT AND DRAINING. ORIENTED PATIENT TO ROOM. CALL LIGHT WITHIHN REACH. NURSING WILL CONTINUE TO MONITOR.
[2019-08-21 20:00] VITALS: BP 158/71
[2019-08-22 05:42] LABS: ABSOLUTE BASOPHILS 0.1 thou/uL (0.0-0.2); ABSOLUTE EOSINOPHILS 0.7 thou/uL (0.0-0.7); ABSOLUTE LYMPHOCYTES 1.7 thou/uL (0.8-5.3); ABSOLUTE MONOCYTES 0.5 thou/uL (0.0-1.2); ABSOLUTE NEUTROPHILS 6.4 thou/uL (1.6-8.1); BASOPHILS 1.2 %; EOSINOPHILS 7.4 %; HEMATOCRIT 29.8 % (42.0-52.0); HEMOGLOBIN 9.9 gm/dL (14.0-18.0); LYMPHOCYTES 17.8 %; MCHC 33.3 g/dL (28.0-37.0); MCV 86.9 fL (80.0-100.0); MONOCYTES 5.3 %; MPV 8.1 fl. (7.2-11.1); NUCLEATED RBCS 0 /100WBC; PLATELET COUNT* 254 thou/uL (150-400); POLYS 68.3 %; RBC 3.43 mil/uL (4.50-6.00); RDW-CV 15.6 % (10.5-14.5); WBC 9.4 thou/uL (4.0-11.0)
[2019-08-22 05:56] LABS: ALBUMIN 2.1 g/dL (3.4-5.0); CALCIUM 8.3 mg/dL (8.5-10.1); POTASSIUM 3.6 mmol/L (3.5-5.1); TOTAL BILIRUBIN 0.2 mg/dL (<0.1-1.0); TOTAL PROTEIN 6.2 g/dL (6.4-8.2)
--- NOTE | 2019-08-22 06:51 | NUR ---
PT A&O X 4, VSS RA. MEDS GIVEN ORDERED. IV MORPINE, OXY IR GIVEN FOR BACK PAIN, PAIN NOT CONTROLLED WELL. PT HAD LARGE BM TWICE THIS SHIFT, DIDNT USE THE CALL LIGHT. EDUCATION GIVEN. GARDINER IN PLACE. HOURY ROUNDS, TURNS COMPLETED. WILL CONTINUE TO MONITOR.
[2019-08-22 09:36] VITALS: BP 137/59
--- NOTE | 2019-08-22 15:53 | NUR ---
REPORT GIVEN TO POOL REYNOLDS AT THIS TIME. ALL CONCERNS ADDRESSED. NO OTHER CONCERNS AT THIS TIME.
--- NOTE | 2019-08-22 17:22 | NUR ---
ASSUMED CARE OF PATIENT AT APPROX 1530, REPORT TAKEN FROM BRITTNEY REYNOLDS. PATIENT IS ALERT AND ORIENTED X4. COMPLAINT OF PAIN ADDRESSED WITH ORAL OXY AND MS CONTIN. ERROL AND SCROTAL WOUNDS CLEANSED AND PHYTOPLEX APPLIED. PATIENT HAD TWO BOWEL MOVEMENTS TODAY REQUIRING SEVERAL CLEANING OF ERROL/BUTTOCK AREA. REDNESS AND PARTIALLY HEALED WOUNDS NOTED TO ERROL AND BUTTOCK AREAS. NO OTHER COMPLAINTS THIS SHIFT. FALL PRECAUTIONS IN PLACE. CALL LIGHT WITHIN REACH. HOURLY ROUNDS COMPLETED. WILL CONTINUE WITH PLAN OF CARE.
[2019-08-22 21:00] VITALS: BP 156/69
--- NOTE | 2019-08-23 05:46 | NUR ---
PT A&O, VSS RA. MEDS GIVEN ORDERED. OXY IR, PO MORPHINE GIVEN FOR BACK PAIN. GARDINER IN PLACE. CALL LIGHT WITHIN REACH. HOURLY ROUNDS, TURNS COMPLETED. WILL CONTINUE TO MONITOR.
[2019-08-23 07:59] VITALS: BP 152/68
--- NOTE | 2019-08-23 16:00 | NUR ---
THERAPY RECOMMENDING SNF AT DISCHARGE. SPOKE WITH PT.AND . PT.AGREEABLE TO GO TO SNF. HE WOULD LIKE [facility].HE HAS BEEN THERE BEFORE. ASKED IF PT.HAD GOTTEN NEW INSURANCE CARD IN MAIL SINCE HILARIO BOUGHT [employer]. SHE THOUGHT HE HAD. SHE WENT HOME TO GET IT.CM MADE COPY OF FRONT AND BACK. FAXED TO ADMITTING AND FAXED IT WITH REFERRAL TO [facility]/ [facility]. SPOKE WITH HER. SHE SAID SHE MAY BE ABLE TO GET AUTH IN AM.
[2019-08-23 16:32] VITALS: BP 151/74
--- NOTE | 2019-08-23 17:11 | NUR ---
ASSUMMED CARE OF PT AT 0730, PT ALERT AND ORIENTED, PT MOANS FREQUENTLY WHENEVER MOVES ANY EXTREMITY, PT MEDICATED PER ORDERS FOR PAIN, PT TAKING FOOD AND FLUIDS WELL, ORDER OBTAINED TO REMOVE GARDINER CATH, PT REFUSED STATES HE WILL NOT BE ABLE TO VOID BECAUSE OF PAIN AND A DR HAD TO PLACE CATHETER, HOSPITALIST CALLED AND WILL LEAVE GARDINER IN,SMALL AMOUNT OF BLODDY DRAINAGE AT MEATUS, CLEANSED X 1, PT BUTTOCKS, SCROTAL, GROIN AREAS REDDENED, OINTMENT APPLIED, IV IN RIGHT IJ PATENT, DRSG CHANGED TO RIGHT FOOT, LEFT FOOT SOPHIE, PT ENCOURAGED TO REPOSTION EVERY 2 HOURS BUT STATES HE IS MOST COMFORTABLE ON BACK, UP IN CHAIR FOR 2 HOURS, TRANSFERS WITH NOD ASSIST OF 2, GB WALKER CUEING, CT NECK COMPLETED, ASSESSMENT COMPLETE, HOURLY ROUNDING COMPLETED, WILL CONTINUE TO MONITOR.
[2019-08-24 01:15] VITALS: BP 159/86
--- NOTE | 2019-08-24 05:17 | NUR ---
MEDS GIVEN ORDERED. PAIN MANAGED WITH OXY IR, MS CONTIN. PT DIDNT WANT TO TAKE GARDINER OUT. ERROL AREA CLEANED, BARRIER CREAM APPLIED. HOURLY ROUNDS, TURNS COMPLETED. WILL CONTINUE TO MONITOR.
[2019-08-24 08:00] VITALS: BP 140/74
[2019-08-24 16:00] VITALS: BP 113/71
--- NOTE | 2019-08-24 18:51 | NUR ---
I ASSUMED CARE OF THE PATIENT AT 0700. HE IS ALERT AND ORIENTED X4 AND IS UP WITH ASSIST OF 1 AND A WALKER. BED IS IN THE LOW LOCKED POSITION AND CALL LIGHT IS IN REACH. HOURLY ROUNDING IS COMPLETED AND PATIENT NEEDS ARE MET. PAIN IS MANAGED WITH PRN MEDS. WILL CONTINUE TO MONITOR.
[2019-08-24 20:00] VITALS: BP 148/91
--- NOTE | 2019-08-25 00:57 | NUR ---
PT ALERT ORIENTED. OXI IR AND MS CONTIN GIVEN FOR PAIN. ON RA. ZULEYKA DD. ACCUCHECK 117 HS. JALEESA TL. NURSE DRAW FOR LABS.
[2019-08-25 07:40] VITALS: BP 144/74
[2019-08-25 12:54] VITALS: BP 148/91
[2019-08-25] MEDS ORDERED: LEVAQUIN 750 M750 MG PO (13:04)
--- NOTE | 2019-08-25 14:45 | NUR ---
PATIENT DISCHARGED TO HOME. DISCHARGE INSTRUCTIONS REVIEWED W/ PATIENT, PRESENT. COPY OF DISCHARGE INSTRUCTIONS GIVEN TO PATIENT, ORIG SCRIPT FOR LEVAQUIN GIVEN. CL DISCONTINUED, CATH TIP INTACT, PRESSURE APPLIED, COTTON BALL/BANDAID APPLIED TO SITE. ASST PATIENT W/ DRSG AND GATHERING OF SUPPLIES. PATIETNT DENIES OTHER NURSING NEEDS. ESCORTED TO AWAITING VEHICLE PER WC W/ NURSING AND PRESENT. BELONGINGS OFF UNIT WITH . PATIENT ALERT AND ORIENTED, NO ACUTE DISTRESS NOTED. ~TJRN
--- NOTE | 2019-08-25 17:00 | NUR ---
PC TO PATIENT/ WITH DR CRUZ INFORMATION GIVEN. STATES SHE WILL CALL TOMORROW AND SET UP APPT FOR 2-3 WEEKS FROM NOW INSTRUCTED. STATES VERBALLY OF UNDERSTANDING. ~NATHANRValeri
== END 2019-08-25 14:45 | disposition home or self-care (01) | DRG 871 ==
LOC: M.ERS 23:27 → M.ICU 08-18 01:40 → M.TBA-ER 08-18 01:40 → M.ICU 08-18 03:00 → M.ORTHSURG 08-21 18:45
PROVIDERS: Emergency Medicine Emergency Medical Services; Internal Medicine; Internal Medicine Pulmonary Disease; Urology; ADMIT Internal Medicine
PROC: B548ZZA Ultrasonography of Superior Vena Cava, Guidance (ICD-10-PCS; principal; 2019-08-18)
PROC: 0BH17EZ Insertion of Endotracheal Airway into Trachea, Via Natural or Artificial Opening (ICD-10-PCS; principal; 2019-08-18)
PROC: 5A1945Z Respiratory Ventilation, 24-96 Consecutive Hours (ICD-10-PCS; principal; 2019-08-18)
PROC: 02HV33Z Insertion of Infusion Device into Superior Vena Cava, Percutaneous Approach (ICD-10-PCS; principal; 2019-08-18)
DX: A41.9 Sepsis, unspecified organism (principal); R65.21 Severe sepsis with septic shock; J96.01 Acute respiratory failure with hypoxia; E11.10 Type 2 diabetes mellitus with ketoacidosis without coma; G93.41 Metabolic encephalopathy; J15.9 Unspecified bacterial pneumonia; N17.9 Acute kidney failure, unspecified; M62.82 Rhabdomyolysis; L03.115 Cellulitis of right lower limb; G89.29 Other chronic pain; I10 Essential (primary) hypertension; I25.10 Atherosclerotic heart disease of native coronary artery without angina pectoris; G47.33 Obstructive sleep apnea (adult) (pediatric); E66.01 Morbid (severe) obesity due to excess calories; M54.9 Dorsalgia, unspecified; I87.2 Venous insufficiency (chronic) (peripheral); Z79.84 Long term (current) use of oral hypoglycemic drugs; Z79.4 Long term (current) use of insulin; Z79.899 Other long term (current) drug therapy; Z88.8 Allergy status to other drugs, medicaments and biological substances; Z68.38 Body mass index [BMI] 38.0-38.9, adult; Z87.891 Personal history of nicotine dependence; Z90.49 Acquired absence of other specified parts of digestive tract; Z83.3 Family history of diabetes mellitus; Z82.49 Family history of ischemic heart disease and other diseases of the circulatory system

== ENCOUNTER 2021-05-01 09:27 | Inpatient (IN) | payer MEDICARE ==
[~2021-05-01] VITALS: Ht 182.9 cm; Wt 133.2 kg
[~2021-05-01 09:27] MED LIST changes: +LEVAQUIN 750 M750 MG PO
[2021-05-01 09:31] VITALS: BP 190/101
[2021-05-01 09:46] LABS: ABSOLUTE BASOPHILS 0.1 thou/uL (0.0-0.2); ABSOLUTE EOSINOPHILS 0.2 thou/uL (0.0-0.7); ABSOLUTE LYMPHOCYTES 1.6 thou/uL (0.8-5.3); ABSOLUTE MONOCYTES 0.8 thou/uL (0.0-1.2); ABSOLUTE NEUTROPHILS 9.7 thou/uL (1.6-8.1); BASOPHILS 0.8 %; EOSINOPHILS 1.6 %; HEMATOCRIT 37.6 % (42.0-52.0); HEMOGLOBIN 12.4 gm/dL (14.0-18.0); LYMPHOCYTES 12.7 %; MCH 29.1 pg (26.0-34.0); MCHC 32.9 g/dL (28.0-37.0); MCV 88.3 fL (80.0-100.0); MONOCYTES 6.7 %; MPV 7.2 fl. (7.2-11.1); NUCLEATED RBCS 0 /100WBC; PLATELET COUNT* 300 thou/uL (150-400); POLYS 78.2 %; RBC 4.26 mil/uL (4.50-6.00); RDW-CV 15.7 % (10.5-14.5); WBC 12.4 thou/uL (4.0-11.0)
[2021-05-01 10:02] LABS: CREATININE 1.4 mg/dL (0.6-1.3); POTASSIUM 3.8 mmol/L (3.5-5.1)
[2021-05-01 10:13] LABS: ALBUMIN 3.4 g/dL (3.4-5.0); MAGNESIUM 1.6 mg/dL (1.8-2.4); TOTAL BILIRUBIN 0.4 mg/dL (<0.1-1.0); TOTAL PROTEIN 8.2 g/dL (6.4-8.2)
--- NOTE | 2021-05-01 11:33 | EKG ---
[place] [address] ELECTROCARDIOGRAM REPORT Name: HEATHER HORTON Room: [place] [address] ADM IN [facility].#: [id number] Admission: 05/01/21 Attend Phys: Lazaro Foote Discharge: Date of : 51 Date of Service: 05/01/21 0933 Report #: [id number] THIS REPORT FOR: //name// [facility] ED Test Date: 2021-05-01 Test Time: 09:33:37 Pat Name: HEATHER HORTON Department: Room: [facility] Gender: M Stenographer Print Shop: MADY : 1955 Requested By: Leonardo Aquino Order Number: [id number] MD: Demetris Coto Measurements Intervals [place] Rate: 140 P: MA: QRS: 165 QRSD: 87 T: 32 QT: 325 QTc: 496 Interpretive Statements Atrial flutter with predominant 2:1 AV block Abnormal R-wave progression, late transition Inferior infarct, old Lateral leads are also involved Baseline wander in lead(s) I,II,aVR,aVF Compared to ECG 08/19/2019 20:28:41 Sinus rhythm no longer present Myocardial infarct finding still present Electronically Signed On 05-01-2021 11:32:43 CDT by Demetris Coto [email or web address] <ELECTRONICALLY SIGNED> By: Demetris Coto MD, [facility] 05/01/21 1132 2 2 Demetris Coto MD, [facility] /EPI
[2021-05-01 14:45] VITALS: BP 162/88
--- NOTE | 2021-05-01 15:43 | NUR ---
DR. PARNELL/LOU PAGED VIA PAGING SYSTEM R/T PT C/O PAIN IN HEAD/CHEST, AND REQUESTING HOME DOSE MEDICATIONS.
[2021-05-01] MEDS ORDERED: FISH OIL 1,0001 EAC9 PO (17:13)
[2021-05-01] MEDS ORDERED: MINOCYCLINE HC100 M2 PO (17:13)
[2021-05-01] MEDS ORDERED: PLAQUENIL200 MG PO (17:13)
[2021-05-01] MEDS ORDERED: OZEMPIC0.25 MG/0. SUBQ (17:14)
[2021-05-01] MEDS ORDERED: TRIAMCINOLONE A80 G2 TOP (17:15)
[2021-05-01 18:33] VITALS: BP 164/86
[2021-05-01 21:38] VITALS: BP 142/61
[2021-05-01 22:00] VITALS: BP 156/81
[2021-05-02] VITALS: BP 146/77
[2021-05-02 04:01] VITALS: BP 128/70
--- NOTE | 2021-05-02 07:45 | NUR ---
RECEIVED REPORT FROM ED RN. PT A&OX4. REFRIGERATION ENGINEER IN PLACE. ADMISSION HISTORY & PHYSICAL ASSESSMENT COMPLETED AND CHARTED. PT ON RA. PT TRACING SRON TELE. PT ORIENTED TO ROOM & CALL LIGHT. MAINTAINED ON CARDIZEM DRIP ORDERED. COMPLAINED BACK PAIN-MED GIVEN PER OCT. FALL PRECAUTIONS IN PLACE. CALL LIGHT WITHIN REACH.
[2021-05-02 08:00] VITALS: BP 113/74
[2021-05-02 12:00] VITALS: BP 138/75
[2021-05-02 16:00] VITALS: BP 167/84
[2021-05-02 20:00] VITALS: BP 160/95
--- NOTE | 2021-05-02 20:30 | NUR ---
RECEIVED REPORT AND ASSUMED CARE OF PT, ASSESSMENT COMPLETED AT THIS TIME. PT RESTING IN BED WATCHING TV, CALL LIGHT IN REACH. YESENIA LOWER LEGS DISCOLORED AND TIGHT. DENIES CP OR SOA. TELEMETRY ON SHOWING SR. WILL CONT TO MONITOR AND ASSIST NEEDED.
[2021-05-03] VITALS: BP 150/80
[2021-05-03 04:43] VITALS: BP 143/83
--- NOTE | 2021-05-03 06:30 | NUR ---
PT ASKED FOR AND RECEIVED PO PAIN MEDS FOR CHRONIC NECK AND BACK PAIN, EFFECTIVE. ASSISTED WITH URINATION. TELEMETRY CONT TO SHOW SR. NO CHANGE IN ASSESSMENT. HS GOALS OF REST AND SAFETY ACHIEVED.
--- NOTE | 2021-05-03 09:39 | NUR ---
CM ASSESSMENT: PT A&O, AND INDEPENDENT WITH ADL'S. PT RESIDES AT HOME WITH SPOUSE. PT USES WALKER OR WHEELCHAIR AT HOME FOR MOBILITY. PT ABLE TO WALK SHORT DISTANCES WITHIN THE HOME. PT HAS PAST HX OF HH WITH [facility]. PT HAS PAST HX OF SNF AT [facility]. PT INFORMS OF PLANS TO RETURN HOME AT D/C AND INFORMS THAT HE MIGHT BE INTERESTED IN HH. CM WILL REMAIN AVAILABLE TO ASISST AND FOLLOW NEEDED.
[2021-05-03 11:30] VITALS: BP 128/101
--- NOTE | 2021-05-03 15:48 | CON ---
[address] [address] CONSULTATION Name: HEATHER HORTON Room: [address] IN M.Juanpablo.#: [id number] Admission: 05/01/21 Attend Phys: Jovanni Wang Discharge: Date of : 51 Report #: [id number] THIS REPORT FOR: cc: Ulisses Ferguson Gregg R. DO Blick, David R. MD [facility] ~ DATE OF CONSULTATION: 05/02/2021 HISTORY OF PRESENT ILLNESS: The patient is a 65-year-old white male who I was asked to see in the hospital today after he was noted to have an abnormal ECG. The history is obtained from the patient. He has been admitted here to [place] in the past. He was admitted here in 02/2019 with a flare-up of his gout. He was admitted here in 08/2019 with respiratory failure, pneumonia, dehydration, chronic kidney disease. He was actually intubated. The patient is not very active because of chronic back pain. He uses a walker. He is also extremely overweight being 6 feet tall, weighing 300 pounds. He has no previous history of heart disease. In fact, he apparently had a pharmacologic nuclear stress test at [facility] in the past that showed no ischemia. He was doing well until 2 days ago he felt an ache in his chest. It lasts all day long. Yesterday, he awakened, he still had aching in his chest. He came to the Emergency Room. He was found to be in atrial fibrillation. He was admitted to a monitored bed, put on intravenous diltiazem. He converted to sinus rhythm. Cardiology consultation requested. He denied the pain radiating to his arms. It did go into his neck and shoulders. He denied any shortness of breath, diaphoresis. He denies any recent exertional dyspnea. He did note some lightheadedness, but denies any palpitations. He has no history of a heart murmur. Denies any fever, cough, bleeding. PAST MEDICAL HISTORY: Significant for back surgery, cholecystectomy, Lasix therapy in his eyes. He has a history of diabetes. He has a history of sleep apnea. CURRENT MEDICATIONS: Consists of allopurinol, colchicine, metformin, metoprolol, Neurontin, aspirin, Lipitor, lisinopril, Zetia. 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 FAMILY HISTORY: His brother had stents. SOCIAL HISTORY: He is . He is on disability. No smoking or alcohol abuse. REVIEW OF SYSTEMS: Previous history of sleep apnea. No stroke. No asthma, although he did use an inhaler occasionally. No history of GI bleeding, liver disease. He has had chronic kidney disease, no cancer, [place] [address] CONSULTATION Name: HEATHER HORTON Room: [address] IN Jermain#: [id number] Admission: 05/01/21 Attend Phys: Jovanni Wang Discharge: Date of : 51 Report #: [id number] No chronic skin condition. PHYSICAL EXAMINATION: GENERAL: Revealed an obese, middle-aged male, lying in bed, appeared in no acute distress. VITAL SIGNS: He had a blood pressure 120/70, pulse is 80, he is afebrile. HEENT: He was anicteric. Conjunctivae pink. Mucosa is moist. NECK: Veins not distended. No carotid bruits. NECK: Supple. CHEST: Clear to auscultation. HEART: Regular rate and rhythm. No murmurs. ABDOMEN: Obese. EXTREMITIES: Had trace lower extremity edema. Dorsalis pedis pulse cannot be palpated. SKIN: Cool and dry. NEUROLOGIC: Nonfocal. LABORATORY DATA: ECG on admission showed what appeared to represent atrial flutter with 2:1 ventricular response rate, rightward axis, incomplete right bundle branch block. Currently, the patient appears to be in a sinus rhythm. His workup, the patient actually had an echocardiogram done in 2019 that showed ejection fraction of 60%, dilated ascending aorta, no valvular abnormality. His x-rays in the Emergency Room yesterday showed atelectasis, otherwise clear lung doherty. His lab work yesterday, his potassium was 3.8, creatinine was 1.4, it has been as high as 2.1 in the past. His liver function studies were normal. His high sensitivity troponin was 26, went up to 42. BNP 695. His white blood cell count was 12.4, hemoglobin 12.4. His COVID antigen stat test was negative. IMPRESSION AND RECOMMENDATIONS: 1. Atrial flutter. Previously had normal structural heart disease. I would recommend checking thyroid function studies. I would recommend anticoagulation with Eliquis. I would recommend switching the patient from metoprolol to sotalol. 2. Chest pain. Atypical for angina. No acute myocardial infarction. 3. History of gout. The patient is on allopurinol. 4. Hyperlipidemia. The patient is on a statin drug and Zetia. 5. Diabetes. 6. Hypertension. The patient is on CALLIE inhibitor, beta jordana. 7. Chronic back pain. The patient is on narcotics. [address] [place] [address] CONSULTATION Name: HORTONHEATHER Room: [address] IN M.R.#: [id number] Admission: 05/01/21 Attend Phys: Jovanni Wang Discharge: Date of : 51 Report #: [id number] 8. Chronic kidney disease. 9. Diabetes. The patient is on insulin. <ELECTRONICALLY SIGNED> By: Demetris Coto MD, FACC 05/03/21 1548 0721 [id number] Coto MD, FACC /nt
[2021-05-03 16:00] VITALS: BP 145/93
[2021-05-03 20:00] VITALS: BP 123/72
[2021-05-04] VITALS: BP 155/80
[2021-05-04 04:00] VITALS: BP 144/79
--- NOTE | 2021-05-04 05:46 | NUR ---
AWAKE FREQ DURING NIGHT WITH CHRONIC BACK PAIN AND LT SHOULDER PAIN, PO MEDS GIVEN REQUESTED. PT ASSISTED WITH URINAL. ABLE TO MOVE SELF IN BED FOR COMFORT. TELEMETRY SHOWING SR WITH 1ST AVB. PT HOPING TO GO HOME TODAY BUT STATES HE DOESN'T FEEL READY.
--- NOTE | 2021-05-04 09:49 | EKG ---
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: : 1955 Requested By: Demetris Coto Order Number: [id number] Vahe MD: Demetris Coto Measurements Intervals [place] Rate: 83 P: 9 PA: 269 QRS: 218 QRSD: 92 T: 26 QT: 420 QTc: 494 Interpretive Statements Sinus rhythm Prolonged PA interval Probable right ventricular hypertrophy Inferior infarct, old Abnormal lateral Q waves Compared to ECG 05/01/2021 09:33:37 Atrial flutter no longer present Myocardial infarct finding still present Electronically Signed On 05-04-2021 9:49:11 CDT by Demetris Coto [email or web address] <ELECTRONICALLY SIGNED> By: Demetris Coto MD, FAC 05/04/21 0949 1729 1729 Demetris Coto MD, FAC /EPI
[2021-05-04] MEDS ORDERED: CEFDINIR300 MG PO (10:01)
[2021-05-04] MEDS ORDERED: ELIQUIS5 MG PO (10:01)
[2021-05-04] MEDS ORDERED: SORINE 80 MG TA80 M1 PO (10:02)
[2021-05-04 11:39] VITALS: BP 150/77
--- NOTE | 2021-05-04 13:13 | EKG ---
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 : 1955 Requested By: Demetris Coto Order Number: [id number] Vahe MD: Demetris Coto Measurements Intervals [place] Rate: 81 P: -75 [place]: 70 QRS: 226 QRSD: 93 T: 17 QT: 422 QTc: 490 Interpretive Statements Sinus rhythm with first degree AV block Probable right ventricular hypertrophy Inferior infarct, old Baseline wander in lead(s) V1 Compared to ECG 05/03/2021 17:29:57 no change Electronically Signed On 05-04-2021 13:12:51 CDT by Demetris Coto [email or web address] <ELECTRONICALLY SIGNED> By: Demetris Coto MD, FAC 05/04/21 1312 1155 1155 Demetris Coto MD, FAC /EPI
--- NOTE | 2021-05-04 14:57 | NUR ---
PHYSICIAN INFORMS OF PLAN TO D/C THE PT HOME WITH HH TODAY. PT IN AGREEMENT AND ACCEPTS HH [facility]. [facility] ACC[facility]PTED PT AND PLAN TO CONTACT THE PT TO ARRANGE A TIME TO VISIT. CM WILL REMAIN AVAILABLE TO ASSIST AND FOLLOW NEEDED. [facility] PHONE: [phone]
== END 2021-05-04 13:35 | disposition home or self-care (01) | DRG 871 ==
LOC: M.ERS 09:27 → M.2W 10:32 → M.TBA-ER 10:32 → M.2W 19:57
PROVIDERS: Emergency Medicine Emergency Medical Services; ADMIT Internal Medicine; ATTEND Internal Medicine
DX: A41.9 Sepsis, unspecified organism (principal); I50.31 Acute diastolic (congestive) heart failure; I48.92 Unspecified atrial flutter; M02.30 Reiter's disease, unspecified site; M62.82 Rhabdomyolysis; I13.0 Hypertensive heart and chronic kidney disease with heart failure and stage 1 through stage 4 chronic kidney disease, or unspecified chronic kidney disease; I48.91 Unspecified atrial fibrillation; M10.9 Gout, unspecified; G89.29 Other chronic pain; M54.9 Dorsalgia, unspecified; E78.5 Hyperlipidemia, unspecified; N18.9 Chronic kidney disease, unspecified; E11.22 Type 2 diabetes mellitus with diabetic chronic kidney disease; I44.30 Unspecified atrioventricular block; E11.621 Type 2 diabetes mellitus with foot ulcer; E66.9 Obesity, unspecified; G47.33 Obstructive sleep apnea (adult) (pediatric); M19.90 Unspecified osteoarthritis, unspecified site; Z79.4 Long term (current) use of insulin; Z90.49 Acquired absence of other specified parts of digestive tract; Z83.3 Family history of diabetes mellitus; Z87.891 Personal history of nicotine dependence; Z68.39 Body mass index [BMI] 39.0-39.9, adult; Z88.8 Allergy status to other drugs, medicaments and biological substances; Z95.5 Presence of coronary angioplasty implant and graft

== ENCOUNTER 2021-08-29 14:08 | Inpatient (IN) | payer MEDICARE ==
[~2021-08-29] VITALS: Ht 182.9 cm; Wt 134.3 kg
--- NOTE | ~2021-08-29 | EMS ---
[address] [address] EMS Patient Care Report Name: HEATHER HORTON Room: [place] [address] ADM IN M.R.#: [id number] Admission: 08/29/21 Attend Phys: Hansel Anderson Discharge: Date of : 51 Report #: [id number] THIS REPORT FOR: //name// Report Transmitted: 08/29/2021 16:39 EMS Care Summary [facility] Ivonne ROSADO Incident 1236 @ 08/29/2021 13:05 Incident Location [address] [place] [address] Patient HEATHER HORTON Male, 66 Years 1955 Patient Address [address] [place] [address] Patient History Other chronic pain,Heart disease, unspecified,Hyperlipidemia,Obesity, unspecified,Neuropathy,Hypertension (HTN),Type 2 diabetes mellitus,Malignant melanoma of skin, unspecified,Cardiac Condition - Other,Gout, Patient Allergies , Patient Medications Allopurinol, Eliquis, Aspirin, Atorvastatin, benzonatate, Colchicine, Zetia, Gabapentin, Hydroxychloroquine, Humalog, insulin, isophane, Lisinopril, Metformin, Metoprolol, Minocycline, Morphine, Oxycodone, Sotalol, Tizanidine, , Chief Complaint Altered Level of Consciousness Disposition Transported No Lights/[place] Reason Sick Person Transported To [address] [place] [address] EMS Patient Care Report Name: HEATHER HORTON Room: [place] [address] ADM IN M.R.#: [id number] Admission: 08/29/21 Attend Phys: Hansel Anderson Discharge: Date of : 51 Report #: [id number] DISPATCHED TO A PRIVATE RESIDENCE FOR A delirious PATIENT. ON SCENE, EMS WAS MET BY A WITH A 66 YOM COMPLAINING OF ALTERED MENTAL STATUS. STATES PT HAS BEEN "delirious ALL DAY" WITH ABNORMAL BEHAVIOR. STATES PT HASN'T GOTTEN UP FROM HIS CHAIR AT ALL TODAY, AND HAS NOT BEEN ABLE TO AMBULATE TO THE BATHROOM NORMAL. STATES SHE FOUND THE PT URINATING HIMSELF, REPORTED TO NOT BE NORMAL, AND HAD TO PLACE A BRIEF ON HIM. STATES PT IS NORMALLY AOX4 AT BASELINE CLAIMING HIS BEHAVIOR CHANGED THIS MORNING. DENIES ANY RECENT UTI OR HISTORY OF SEPSIS, CLAIMS PT FEELS WARM TO TOUCH NORMALLY. STATES PT HAS NOT HAD ANY OF HIS ROUTINE MEDICATIONS YET FOR THE MORNING. WHILE ATTEMPTING TO ASSESS THE PT, HE CONTINUES TO SAY "I'M OKAY, TAKE IT OFF" AND THAT HE DOES NOT NEED TO BE EVALUATED. PT WAS UNABLE TO ANSWER ORIENTATION QUESTIONS APPROPRIATELY AND WOULD NOT ANSWER QUESTIONS DIRECTLY IN GENERAL. PT COMPLAINED OF CHEST PX FOR A BRIEF MOMENT BUT WOULD NOT ANSWER WHEN ATTEMPTING TO OBTAIN FURTHER. PT THEN COMPLAINED OF BACK PX, ADVISED PT HAS CHRONIC BACK PX. DURING TRANSPORT, EMS WAS STILL UNABLE TO OBTAIN A CHIEF COMPLAINT FROM THE PT OR GET APPROPRIATE ANSWERS TO ORIENTATION QUESTIONS. UPON ARRIVAL, PT WAS FOUND SITTING UPRIGHT IN A RECLINER IN THE LIVING ROOM, PT DID NOT APPEAR TO BE IN OBVIOUS DISTRESS BUT WAS RESTLESS. PT WAS AWAKE ALERT AND ORIENTED X2, AIRWAY WAS PATENT AND CLEAR, BREATHING WAS INCREASED AND REGULAR - NON LABORED, CIRCULATION WAS NORMAL AND REGULAR, PHYSICAL ASSESSMENT NOTED. BSI, PT CONTACT, ABCS, INITIAL ASSESSMENT, PT CARRIED TO [facility] VIA SHEET TRANSFER AND SECURED, PT LOADED INTO UNIT AND LOCKED IN PLACE, VITALS AND TREATMENTS NOTED, TRANSPORT INITIATED, PT FREQUENTLY REASSESSED, PT REMAINED STABLE WITH NO CHANGE IN CONDITION OR FURTHER DETERIORATION, AT DESTINATION PT WAS UNLOADED FROM UNIT AND WHEELED INTO ED, PT MOVED FROM [facility] TO ED BED VIA SHEET TRANSFER, VERBAL REPORT GIVEN AND PT CARE TRANSFERRED TO RN AT RECEIVING FACILITY. [facility] RETURNED TO SERVICE WITHOUT INCIDENT. Initial Vitals @13:48SpO2: 97, @13:55SpO2: 96, @14:02SpO2: 97, @14:04SpO2: 96, @13:46 @13:49Temp: [id number], @13:48P: 100,R: 18,BP: 178/88, @13:55P: 96,R: 18,BP: 168/90, @14:02P: 96,R: 18,BP: 177/141, @14:04P: 95,R: 18,BP: 186/81, @13:25P: 105,R: 20,BP: 162/110, @13:21GpSE3: 35, @14:10QiHB9: 38, @13:48GCS: 14, @13:55GCS: 14, @14:02GCS: 14, @14:04GCS: 14, [address] [address] EMS Patient Care Report Name: HEATHER HORTON Room: [place] [address] ADM IN M.R.#: [id number] Admission: 08/29/21 Attend Phys: Hansel Anderson Discharge: Date of : 51 Report #: [id number] @13:25GCS: 14, @13:22 @13:25Glucose: 310, Assessments @13:21MENTAL:SKIN:HEENT:LUNG SOUNDS:ABDOMEN:PELVIS//GI:EXTREMITIES:PULSE:NEURO: Impression Altered Mental Status Procedures @13:50 IV Therapy - cc () Site: Antecubital-Left Response: UnchangedSucceeded @13:55 ETCO2 digital capnography Response: UnchangedSucceeded @14:02 ETCO2 digital capnography Response: UnchangedSucceeded @13:46 12-Lead ECG Response: UnchangedSucceeded Timeline 13:05,Dispatch Notified 13:05,Psap Call 13:05,Dispatched 13:06,En Route 13:20,On Scene 13:21,At Patient 13:22,BP: / M,PULSE: ,RR: R,SPO2: Ox,ETCO2: ,BG: ,PAIN: ,GCS: , 13:25,BP: 162/110 M,PULSE: 105,RR: 20 R,SPO2: Ox,ETCO2: ,BG: ,PAIN: ,GCS: , 13:25,BP: / M,PULSE: ,RR: R,SPO2: Ox,ETCO2: ,BG: ,PAIN: ,GCS: 14, 13:25,BP: / M,PULSE: ,RR: R,SPO2: Ox,ETCO2: ,B,PAIN: ,GCS: , 13:46,12-Lead ECG,Response: UnchangedSucceeded, 13:46,BP: / M,PULSE: ,RR: R,SPO2: Ox,ETCO2: ,BG: ,PAIN: ,GCS: , 13:48,BP: / M,PULSE: ,RR: R,SPO2: 97 Ox,ETCO2: ,BG: ,PAIN: ,GCS: , 13:48,BP: 178/88 M,PULSE: 100,RR: 18 R,SPO2: Ox,ETCO2: ,BG: ,PAIN: ,GCS: , 13:48,BP: / M,PULSE: ,RR: R,SPO2: Ox,ETCO2: ,BG: ,PAIN: ,GCS: 14, 13:49,BP: / M,PULSE: ,RR: R,SPO2: Ox,ETCO2: ,BG: ,PAIN: ,GCS: , 13:50,IV Therapy - cc Site: Antecubital-Left,Response: UnchangedSucceeded, 13:54,Depart Scene 13:55,ETCO2 digital capnography,Response: UnchangedSucceeded, 13:55,BP: / M,PULSE: ,RR: R,SPO2: 96 Ox,ETCO2: ,BG: ,PAIN: ,GCS: , 13:55,BP: 168/90 M,PULSE: 96,RR: 18 R,SPO2: Ox,ETCO2: ,BG: ,PAIN: ,GCS: , 13:55,BP: / M,PULSE: ,RR: R,SPO2: Ox,ETCO2: 35 ,BG: ,PAIN: ,GCS: , 13:55,BP: / M,PULSE: ,RR: R,SPO2: Ox,ETCO2: ,BG: ,PAIN: ,GCS: 14, 14:02,ETCO2 digital capnography,Response: UnchangedSucceeded, 14:02,BP: / M,PULSE: ,RR: R,SPO2: 97 Ox,ETCO2: ,BG: ,PAIN: ,GCS: , 14:02,BP: 177/141 M,PULSE: 96,RR: 18 R,SPO2: Ox,ETCO2: ,BG: ,PAIN: ,GCS: , 14:02,BP: / M,PULSE: ,RR: R,SPO2: Ox,ETCO2: 38 ,BG: ,PAIN: ,GCS: , [facility] [address] [place] [address] EMS Patient Care Report Name: HEATHER HORTON Room: [place] [address] ADM IN .R.#: [id number] Admission: 08/29/21 Attend Phys: Hansel Anderson Discharge: Date of : 51 Report #: [id number] 14:02,BP: / M,PULSE: ,RR: R,SPO2: Ox,ETCO2: ,BG: ,PAIN: ,GCS: 14, 14:04,BP: / M,PULSE: ,RR: R,SPO2: 96 Ox,ETCO2: ,BG: ,PAIN: ,GCS: , 14:04,BP: 186/81 M,PULSE: 95,RR: 18 R,SPO2: Ox,ETCO2: ,BG: ,PAIN: ,GCS: , 14:04,BP: / M,PULSE: ,RR: R,SPO2: Ox,ETCO2: ,BG: ,PAIN: ,GCS: 14, 14:04,At Destination 14:23,Call Closed Disclaimer v1.1 Copyright 2021 [employer] This EMS Care Summary contains data elements from the applicable legal record (which may be displayed differently). It is designed to provide pertinent information for the following purposes: continuity of care, clinical quality, and state data reporting. The complete legal record is available to ED staff and administrators of the receiving hospital in [employer] Patient Tracker. All data is provided "as is."
[~2021-08-29 14:08] MED LIST changes: +CEFDINIR300 MG PO; +ELIQUIS5 MG PO; +FISH OIL 1,0001 EAC9 PO; +MINOCYCLINE HC100 M2 PO; +OZEMPIC0.25 MG/0. SUBQ; +PLAQUENIL200 MG PO; +SORINE 80 MG TA80 M1 PO; +TRIAMCINOLONE A80 G2 TOP
[2021-08-29 14:12] VITALS: BP 207/74
[2021-08-29 14:52] LABS: HEMATOCRIT 36.3 % (42.0-52.0); HEMOGLOBIN 11.7 gm/dL (14.0-18.0); MCH 28.7 pg (26.0-34.0); MCHC 32.3 g/dL (28.0-37.0); MCV 88.9 fL (80.0-100.0); MPV 7.4 fl. (7.2-11.1); NUCLEATED RBCS 0 /100WBC; PLATELET COUNT* 261 thou/uL (150-400); RBC 4.09 mil/uL (4.50-6.00); RDW-CV 15.5 % (10.5-14.5); WBC 14.5 thou/uL (4.0-11.0)
[2021-08-29 15:03] LABS: CALCIUM 9.6 mg/dL (8.5-10.1); CREATININE 1.5 mg/dL (0.6-1.3); POTASSIUM 4.4 mmol/L (3.5-5.1)
[2021-08-29 15:18] LABS: ALBUMIN 2.8 g/dL (3.4-5.0); CK-MB MASS 0.5 ng/mL (<0.5-3.6); TOTAL BILIRUBIN 0.3 mg/dL (<0.1-1.0); TOTAL PROTEIN 7.9 g/dL (6.4-8.2)
[2021-08-29 15:23] LABS: ABSOLUTE EOSINOPHILS 0.1 thou/uL (0.0-0.7); ABSOLUTE LYMPHOCYTES 1.5 thou/uL (0.8-5.3); ABSOLUTE MONOCYTES 0.7 thou/uL (0.0-1.2); ABSOLUTE NEUTROPHILS 12.2 thou/uL (1.6-8.1)
[2021-08-29 15:24] LABS: PLATELET ESTIMATE ADEQUATE; POLYCHROMASIA Occasional
[2021-08-29 19:30] VITALS: BP 134/75
[2021-08-29 23:02] VITALS: BP 146/69
[2021-08-30 04:00] VITALS: BP 117/92
[2021-08-30 08:00] VITALS: BP 167/87
[2021-08-30 10:09] LABS: URINE BILIRUBIN NEGATIVE (Negative); URINE BLOOD 2+ (Negative); URINE CLARITY CLEAR; URINE COLOR YELLOW; URINE GLUCOSE-RANDOM 3+ (Negative); URINE KETONES TRACE (Negative); URINE LEUKOCYTES-REFLEX NEGATIVE (Negative); URINE NITRITE-REFLEX NEGATIVE (Negative); URINE PROTEIN 2+ (Negative); URINE UROBILINOGEN 0.2 E.U./dl (0.2-1.0)
[2021-08-30 10:16] LABS: AMP/METHAMP Negative (Negative); BARBITURATES Negative (Negative); BENZODIAZEPINES Negative (Negative); COCAINE Negative (Negative); METHADONE Negative (Negative); OPIATES POSITIVE (Negative); PCP Negative (Negative); THC Negative (Negative)
[2021-08-30 10:17] LABS: BACTERIA-REFLEX 1-9 Few /HPF (None Seen); CASTS None Seen /LPF (None Seen); CRYSTALS None Seen /LPF (None Seen); SQUAMOUS NONE SEEN /LPF (0-3); URINE WBC-REFLEX None Seen /HPF (0-5)
[2021-08-30 12:00] VITALS: BP 174/81
--- NOTE | 2021-08-30 13:18 | EKG ---
[place] [address] ELECTROCARDIOGRAM REPORT Name: HEATHER HORTON Room: [place] [address] ADM IN .R.#: [id number] Admission: 08/29/21 Attend Phys: Tyson Sorensen Discharge: Date of : 51 Date of Service: 08/29/21 1418 Report #: [id number] THIS REPORT FOR: //name// 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1955 Requested By: Jaycob Silvestre Order Number: [id number] MD: Vipul Denis Measurements Intervals [place] Rate: 100 P: 61 CO: 200 QRS: 224 QRSD: 99 T: 11 QT: 364 QTc: 470 Interpretive Statements Sinus tachycardia Inferior infarct, old Baseline wander in lead(s) II,aVR,aVF,V2 Compared to ECG 05/04/2021 11:55:15 Sinus rate has increased First degree AV block no longer present Myocardial infarct finding still present Electronically Signed On 08-30-2021 13:17:52 DISPLAY TRIMMER by Vipul Denis [email or web address] <ELECTRONICALLY SIGNED> By: Vipul Denis MD, [facility] 08/30/21 1317 1418 1418 Vipul Denis MD, [facility] /EPI
[2021-08-30 16:00] VITALS: BP 168/89
[2021-08-30 20:00] VITALS: BP 152/63
[2021-08-30 22:40] VITALS: BP 152/63
[2021-08-31] VITALS: BP 105/65
[2021-08-31 04:00] VITALS: BP 151/75
[2021-08-31 05:17] LABS: ABSOLUTE BASOPHILS 0.1 thou/uL (0.0-0.2); ABSOLUTE EOSINOPHILS 0.6 thou/uL (0.0-0.7); ABSOLUTE LYMPHOCYTES 1.7 thou/uL (0.8-5.3); ABSOLUTE MONOCYTES 0.7 thou/uL (0.0-1.2); ABSOLUTE NEUTROPHILS 5.9 thou/uL (1.6-8.1); BASOPHILS 0.9 %; EOSINOPHILS 6.5 %; HEMATOCRIT 32.1 % (42.0-52.0); HEMOGLOBIN 10.4 gm/dL (14.0-18.0); LYMPHOCYTES 18.9 %; MCH 28.9 pg (26.0-34.0); MCHC 32.3 g/dL (28.0-37.0); MCV 89.4 fL (80.0-100.0); MONOCYTES 8.1 %; MPV 7.3 fl. (7.2-11.1); NUCLEATED RBCS 0 /100WBC; PLATELET COUNT* 259 thou/uL (150-400); POLYS 65.6 %; RBC 3.59 mil/uL (4.50-6.00); RDW-CV 15.5 % (10.5-14.5); WBC 8.9 thou/uL (4.0-11.0)
[2021-08-31 05:28] LABS: POTASSIUM 3.8 mmol/L (3.5-5.1)
[2021-08-31 08:00] VITALS: BP 133/56
[2021-08-31 12:47] VITALS: BP 125/58
[2021-08-31 17:33] VITALS: BP 151/68
[2021-08-31 19:30] VITALS: BP 162/71
[2021-09-01] VITALS: BP 139/64
[2021-09-01 04:00] VITALS: BP 184/73
[2021-09-01 08:05] VITALS: BP 124/47
[2021-09-01 11:11] LABS: ABSOLUTE BASOPHILS 0.1 thou/uL (0.0-0.2); ABSOLUTE EOSINOPHILS 0.4 thou/uL (0.0-0.7); ABSOLUTE LYMPHOCYTES 0.7 thou/uL (0.8-5.3); ABSOLUTE MONOCYTES 0.6 thou/uL (0.0-1.2); BASOPHILS 1.2 %; EOSINOPHILS 7.4 %; HEMATOCRIT 33.3 % (42.0-52.0); HEMOGLOBIN 10.3 gm/dL (14.0-18.0); LYMPHOCYTES 14.1 %; MCH 28.9 pg (26.0-34.0); MCHC 30.9 g/dL (28.0-37.0); MCV 93.7 fL (80.0-100.0); MONOCYTES 13.4 %; MPV 7.5 fl. (7.2-11.1); NUCLEATED RBCS 0 /100WBC; PLATELET COUNT* 235 thou/uL (150-400); POLYS 63.9 %; RBC 3.56 mil/uL (4.50-6.00); RDW-CV 16.1 % (10.5-14.5); WBC 4.8 thou/uL (4.0-11.0)
[2021-09-01 11:23] LABS: CALCIUM 8.6 mg/dL (8.5-10.1); CREATININE 2.6 mg/dL (0.6-1.3); POTASSIUM 4.2 mmol/L (3.5-5.1)
[2021-09-01 12:13] VITALS: BP 149/72
[2021-09-01 17:30] VITALS: BP 144/78
[2021-09-01 21:20] VITALS: BP 197/59
[2021-09-02] VITALS: BP 134/57
[2021-09-02 04:00] VITALS: BP 143/65
[2021-09-02 04:07] LABS: HEMATOCRIT 28.7 % (42.0-52.0); HEMOGLOBIN 9.3 gm/dL (14.0-18.0); MCH 28.8 pg (26.0-34.0); MCHC 32.5 g/dL (28.0-37.0); MPV 7.4 fl. (7.2-11.1); RBC 3.23 mil/uL (4.50-6.00); RDW-CV 15.6 % (10.5-14.5); WBC 5.2 thou/uL (4.0-11.0)
[2021-09-02 04:12] LABS: MCV 88.7 fL (80.0-100.0)
[2021-09-02 04:32] LABS: ALBUMIN 2.1 g/dL (3.4-5.0); CREATININE 2.2 mg/dL (0.6-1.3); POTASSIUM 3.9 mmol/L (3.5-5.1); TOTAL BILIRUBIN 0.1 mg/dL (<0.1-1.0); TOTAL PROTEIN 6.3 g/dL (6.4-8.2)
[2021-09-02 08:13] VITALS: BP 124/52
[2021-09-02 12:00] VITALS: BP 130/59
[2021-09-02 19:45] VITALS: BP 135/76
[2021-09-03] VITALS (7 sets, daily range): BP systolic 107–172; BP diastolic 55–86
[2021-09-03 05:15] LABS: HEMATOCRIT 31.4 % (42.0-52.0); HEMOGLOBIN 9.6 gm/dL (14.0-18.0); MCH 29.7 pg (26.0-34.0); MCHC 30.6 g/dL (28.0-37.0); RBC 3.23 mil/uL (4.50-6.00); RDW-CV 16.7 % (10.5-14.5)
[2021-09-03 05:16] LABS: MCV 97.2 fL (80.0-100.0)
[2021-09-03 05:57] LABS: CALCIUM 8.3 mg/dL (8.5-10.1); MAGNESIUM 1.8 mg/dL (1.8-2.4)
[2021-09-03 05:59] LABS: POTASSIUM 3.9 mmol/L (3.5-5.1); TOTAL BILIRUBIN 0.2 mg/dL (<0.1-1.0)
[2021-09-03 06:00] LABS: ALBUMIN 2.3 g/dL (3.4-5.0); TOTAL PROTEIN 5.5 g/dL (6.4-8.2)
[2021-09-04] VITALS: BP 146/68
[2021-09-04 04:00] VITALS: BP 149/70
[2021-09-04] MEDS ORDERED: NEURONTIN600 MG PO (06:13)
[2021-09-04] MEDS ORDERED: NYAMYC15 GM TOP (06:16)
[2021-09-04 07:04] LABS: CALCIUM 8.2 mg/dL (8.5-10.1); CREATININE 1.6 mg/dL (0.6-1.3); POTASSIUM 3.9 mmol/L (3.5-5.1)
[2021-09-04 08:33] LABS: CREATININE 0.8 mg/dL (0.6-1.3)
[2021-09-04 08:34] VITALS: BP 149/70
== END 2021-09-04 09:50 | disposition home or self-care (01) | DRG 682 ==
LOC: M.ERS 14:08 → M.TBA-ER 15:35 → M.ORTHSURG 15:35 → M.2W 08-30 22:47 → M.ORTHSURG 09-02 15:51
PROVIDERS: Family Medicine; Internal Medicine; ADMIT Internal Medicine; ATTEND Internal Medicine
DX: N17.9 Acute kidney failure, unspecified (principal); R65.11 Systemic inflammatory response syndrome (SIRS) of non-infectious origin with acute organ dysfunction; U07.1 COVID-19; G92.9 Unspecified toxic encephalopathy; L03.116 Cellulitis of left lower limb; L03.115 Cellulitis of right lower limb; E11.9 Type 2 diabetes mellitus without complications; N48.83 Acquired buried penis; G89.29 Other chronic pain; I48.91 Unspecified atrial fibrillation; T50.915A Adverse effect of multiple unspecified drugs, medicaments and biological substances, initial encounter; B35.6 Tinea cruris; Z79.4 Long term (current) use of insulin; Z90.49 Acquired absence of other specified parts of digestive tract; Z88.8 Allergy status to other drugs, medicaments and biological substances; Y92.89 Other specified places as the place of occurrence of the external cause